=== PATIENT | female | born 1945 | race Caucasian/White ===

== ENCOUNTER → 2016-12-12 | Outpatient (CLI) | payer MEDICARE, OTHER ==
[~2016-12-12] MED LIST: ACETAMINOPHEN TAB 325 MG TAB PO ONE; SODIUM CHLORIDE 0.9% 250 ML in EMPTY BAG 1 BAG IV PRN; SODIUM CHLORIDE 0.9% 500 ML in EMPTY BAG 1 BAG IV PRN; diphenhydrAMINE 25 MG CAP PO ONE; diphenhydrAMINE 50 MG/ML 1 ML VIAL IVP ONE
[2016-12-12 11:35] VITALS: RESP 18; TEMP 97.9
[2016-12-12 13:09] VITALS: PULSE 72
[2016-12-12 13:33] VITALS: BP 122/57
== END | disposition home or self-care (01) ==
LOC: PROCWHC3 11:10
PROVIDERS: ATTEND Internal Medicine Rheumatology
DX: L40.59 Other psoriatic arthropathy (principal)
CPT/HCPCS: 96361; 96413; 96415; 36415; J1745

== ENCOUNTER → 2017-02-03 | Outpatient (CLI) | payer MEDICARE, OTHER ==
[2017-02-03 11:09] VITALS: TEMP 97.5
[2017-02-03 11:51] LABS: Basophils # (A) 0.1 k/uL (0-0.2); Basophils % (A) 1 %; CH 32.6; CHCM 32.4; Eosinophils # (A) 0.4 k/uL (0-0.7); Eosinophils % (A) 6 %; HCT 44.4 % (34.0-46.0); HGB 14.4 gm/dL (11.4-16.0); Luc # (Auto) 0.11; Luc % (Auto) 2; Lymphocytes # (A) 1.6 k/uL (1.0-4.8); Lymphocytes % (A) 23 %; MCH 32.8 pg (25.0-35.0); MCHC 32.4 g/dL (31.0-37.0); MCV 101.2 fL (80.0-100.0); Macrocytosis Slight; Mean Platelet Volume 7.6; Monocytes # (A) 0.4 k/uL (0-1.0); Monocytes % (A) 5 %; Neutrophils # (A) 4.3 k/uL (1.3-7.7); Neutrophils % (A) 63 %; RBC 4.38 m/uL (3.80-5.40); RDW 13.8 % (11.5-15.5); WBC 6.8 k/uL (3.8-10.6)
[2017-02-03 12:10] LABS: Bilirubin, Delta 0.4 mg/dL (0.0-0.2); Calcium 9.5 mg/dL (8.4-10.2); Potassium 5.3 mmol/L (3.5-5.1); Total Bilirubin 0.8 mg/dL (0.2-1.3); Total Protein 7.1 g/dL (6.3-8.2)
[2017-02-03 12:53] VITALS: BP 131/60; PULSE 67; RESP 18
[2017-02-03 14:53] LABS: Erythrocyte Sedimentation Rate 16 mm/hr (0-20)
[2017-02-03 15:10] LABS: Appearance,Urine Cloudy (Clear); Bacteria,Urine Rare /hpf; Bilirubin,Urine Negative (Negative); Glucose,Urine (UA) Negative (Negative); Ketones,Urine Negative (Negative); Leukocyte Esterase,Urine Small (Negative); Nitrite,Urine Negative (Negative); Particle Count 10057; Protein,Urine Trace (Negative); RBC,Urine 3 /hpf (0-5); Specific Gravity,Urine 1.014 (1.001-1.035); Squamous Epithelial Cell,Urine 4 /hpf (0-4); UA Billing (MACRO vs. MICRO) MICRO; Urobilinogen,Urine <2.0 mg/dL (<2.0); WBC,Urine 2 /hpf (0-5)
== END | disposition home or self-care (01) ==
LOC: PROCWHC3 10:31
PROVIDERS: ATTEND Internal Medicine Rheumatology
DX: L40.50 Arthropathic psoriasis, unspecified (principal)
CPT/HCPCS: 80053; 85652; 82248; 85025; 81001; 96413; 96415; J1745

== ENCOUNTER 2017-04-07 18:12 | Emergency (ER) | payer MEDICARE, OTHER ==
[2017-04-07 18:20] LABS: Glucose,Whole Blood 60 mg/dL (75-99)
--- NOTE | 2017-04-07 18:35 | ED ---
General Adult HPI - General Chief complaint: Recheck/Abnormal Lab/Rx Stated complaint: diabetes Time Seen by Provider: 04/07/17 18:27 Source: patient, RN notes reviewed Mode of arrival: ambulatory Limitations: no limitations - History of Present Illness Initial comments: 71-year-old female who presents emergency room today with a chief complaint of feeling shaky like her blood sugar is low. She does admit that she was bringing a friend here to the ER for a test. She states that she did take her insulin approximately 2 hours ago but did not have dinner. She states she began feeling very shaky and sweaty. He was given orange juice and crackers by nursing staff during triage at this time states she is beginning to feel little bit better. She denies any other complaints or symptoms. Patient denies any recent fever, chills, shortness of breath, chest pain, back pain, abdominal pain , nausea or vomiting, numbness or tingling, dysuria or hematuria, constipation or diarrhea, headaches or visual changes, or any other complaints. - Related Data Home Medications Medication Instructions Recorded Confirmed Clopidogrel [Plavix] 75 mg PO DAILY 02/24/14 02/03/17 DULoxetine HCL [Cymbalta] 60 mg PO HS 02/24/14 02/03/17 Fish Oil/Dha/Epa [Fish Oil 1,200 1,000 mg PO DAILY 02/24/14 02/03/17 mg Fish Oil] Folic Acid 1 mg PO DAILY 02/24/14 02/03/17 Gabapentin [Neurontin] 300 mg PO BID 02/24/14 02/03/17 INSULIN LISPRO (humaLOG) [humaLOG 20 unit SQ AC-BRKFST PRN 02/24/14 02/03/17 (formulary)] INSULIN LISPRO (humaLOG) [humaLOG 25 unit SQ AC-LUNCH PRN 02/24/14 02/03/17 (formulary)] INSULIN LISPRO (humaLOG) [humaLOG 25 unit SQ AC-SUPPER PRN 02/24/14 02/03/17 (formulary)] Insulin Detemir [Levemir Flexpen] 70 units SQ QAM 02/24/14 02/03/17 Levothyroxine Sodium [Synthroid] 75 mcg PO QAM 02/24/14 02/03/17 Nitroglycerin Sl Tabs [Nitrostat] 0.4 mg SUBLINGUAL DIRECTED PRN 02/24/14 Ascorbic Acid [Vitamin C] 500 mg PO DAILY 08/16/14 02/03/17 Cyanocobalamin (Vitamin B-12) 1,000 mcg PO DAILY 11/11/14 02/03/17 [B-12] Fluticasone Propionate [Flonase] 1 spr EA NOSTRIL DAILY PRN 11/11/14 02/03/17 Magnesium Oxide [Mag-Ox] 400 mg PO DAILY 11/11/14 02/03/17 inFLIXimab [Remicade] 400 mg IM DIRECTED 11/11/14 02/03/17 Cholecalciferol [Vitamin D3] 1,000 unit PO DAILY 12/10/14 02/03/17 Alendronate Sodium 70 mg PO WEEKLY 01/05/16 02/03/17 Triamcinolone 0.1% Cream [Kenalog] 1 applic TOPICAL DAILY PRN 01/05/16 02/03/17 Previous Rx's Medication Instructions Recorded Aspirin 325 mg PO DAILY #30 tab 08/18/14 Atorvastatin [Lipitor] 80 mg PO HS #30 tab 08/18/14 Metoprolol Tartrate [Lopressor] 25 mg PO BID #60 tab 08/18/14 Allergies Allergy/AdvReac Type Severity Reaction Status Date / Time adhesive Allergy Itching Verified 04/07/17 18:26 Penicillins Allergy Swelling,hi Verified 04/07/17 18:26 ves Review of Systems ROS Statement: Those systems with pertinent positive or pertinent negative responses have been documented in the HPI. ROS Other: All systems not noted in ROS Statement are negative. Past Medical History Past Medical History: Diabetes Mellitus, Deep Vein Thrombosis (DVT), Fibromyalgia, Hyperlipidemia, Hypertension, Myocardial Infarction ([place]), Thyroid Disorder, Vascular Disorder Additional Past Medical History / Comment(s): PAD, PSORIATIC ARTHRITIS. Last Myocardial Infarction Date:: 08/16/2014 History of Any Multi-Drug Resistant Organisms: None Reported Past Surgical History: Section, Heart Catheterization, Heart Catheterization With Stent Additional Past Surgical History / Comment(s): LEFT SUPERFICIAL FEMORAL ARTERY STENT.COLONOSCOPY, BILATERAL BREAST BIOPSY.NEPHROLITHOTOMY, LITHOTRIPSY, 08/05 cardiac stent, Arthrectomy Past Anesthesia/Blood Transfusion Reactions: No Reported Reaction Date of Last Stent Placement:: 2013 Past Psychological History: Depression Smoking Status: Current every day smoker Past Alcohol Use History: None Reported Past Drug Use History: None Reported - Past Family History Mother Family Medical History: Myocardial Infarction ([place]) Additional Family Medical History / Comment(s): MOTHER OF A HEART ATTACK AT AGE OF 63 Sister(s) Family Medical History: Cancer Additional Family Medical History / Comment(s): SISTER HAD OVARIAN CANCER Brother(s) Family Medical History: Cancer Additional Family Medical History / Comment(s): BONE CANCER,prostate,brain,cabg General Exam - General Exam Comments Initial Comments: General: The patient is awake and alert, in no distress, and does not appear acutely ill. Eye: Pupils are equal, round and reactive to light, extra-ocular movements are intact. No nystagmus. There is normal conjunctiva bilaterally. No signs of icterus. Ears, nose, mouth and throat: There are moist mucous membranes and no oral lesions. Neck: The neck is supple, there is no tenderness or JVD. Cardiovascular: There is a regular rate and rhythm. No murmur, rub or gallop is appreciated. Respiratory: Lungs are clear to auscultation, respirations are non-labored, breath sounds are equal. No wheezes, stridor, rales, or rhonchi. Gastrointestinal: Soft, non-distended, non-tender abdomen without masses or organomegaly noted. There is no rebound or guarding present. No CVA tenderness. Bowel sounds are unremarkable. Musculoskeletal: Normal ROM, no tenderness. Strength 5/5. Sensation intact. Pulses equal bilaterally 2+. Neurological: A&O x 3. CN II-XII intact, There are no obvious motor or sensory deficits. Coordination appears grossly intact. Speech is normal. Skin: Skin is warm and dry and no rashes or lesions are noted. Psychiatric: Cooperative, appropriate mood & affect, normal judgment. Limitations: no limitations Course Vital Signs 04/07/17 04/07/17 18:21 18:26 Temperature 96.9 F L 98.7 F Pulse Rate 105 H 84 Respiratory 18 16 Rate Blood Pressure 173/74 125/60 O2 Sat by Pulse 98 94 L Oximetry EKG Findings - EKG Comments: EKG Findings:: EKG performed at 1838: A 12-lead EKG was performed and interpreted by me as showing the following: Rate is 95, and rhythm is normal sinus. There are normal QRS complexes and normal R-wave progression. ST segments have no elevation or depression, and DC segments appear normal. Medical Decision Making - Medical Decision Making Patient reexamined at this time shows no signs of distress. Patient's repeat blood sugar 112. Feeling much better after given sitting which and when she was here in the emergency room. Patient states she feels comfortable at this time and would like to be discharged home. - Lab Data Lab Results 04/07/17 04/07/17 Range/Units 18:18 18:36 POC Glucose (mg/dL) 60 L 84 (75-99) mg/dL POC Glu [employer] Teacher ID Trina Diamond Nelly Camara Disposition Clinical Impression: Hypoglycemia Disposition: HOME SELF-CARE Condition: Good Instructions: Hypoglycemia in a Person with Diabetes (ED) Additional Instructions: Please follow-up with family doctor in the next 2 days of symptoms have not improved. Please return to emergency room if the symptoms increase or worsen or for any other concerns. Referrals: Jaswinder Prado MD [Primary Care Provider] - 1-2 days Time of Disposition: 19:22
[2017-04-07 18:38] LABS: Glucose,Whole Blood 84 mg/dL (75-99)
[2017-04-07 18:56] VITALS: TEMP 98.7
[2017-04-07 19:22] LABS: Glucose,Whole Blood 112 mg/dL (75-99)
[2017-04-07 19:28] VITALS: BP 125/57; PULSE 91; RESP 18
== END 2017-04-07 19:49 | disposition home or self-care (01) ==
LOC: EC 18:12
DX: E11.649 Type 2 diabetes mellitus with hypoglycemia without coma (principal); L40.50 Arthropathic psoriasis, unspecified; M79.7 Fibromyalgia; E07.9 Disorder of thyroid, unspecified; F32.9 Major depressive disorder, single episode, unspecified; I25.2 Old myocardial infarction; F17.200 Nicotine dependence, unspecified, uncomplicated; Z79.4 Long term (current) use of insulin; Z79.02 Long term (current) use of antithrombotics/antiplatelets; Z79.899 Other long term (current) drug therapy; Z88.0 Allergy status to penicillin; Z91.09 Other allergy status, other than to drugs and biological substances
CPT/HCPCS: 36415; 93005; 99283

== ENCOUNTER → 2017-04-24 | Outpatient (CLI) | payer MEDICARE, OTHER ==
[2017-04-24 11:33] VITALS: RESP 16; TEMP 97.8
[2017-04-24 13:19] VITALS: BP 122/58; PULSE 73
== END | disposition home or self-care (01) ==
LOC: PROCWHC3 11:24
PROVIDERS: ATTEND Internal Medicine Rheumatology
DX: L40.59 Other psoriatic arthropathy (principal)
CPT/HCPCS: 96413; 96415; J1745

== ENCOUNTER → 2017-07-13 | Outpatient (CLI) | payer MEDICARE, OTHER ==
[~2017-07-13] MED LIST changes: +ACETAMINOPHEN TAB 325 MG TAB PO NR; +INFLIXIMAB-DYYB 600 MG in SODIUM CHLORIDE 0.9% 250 ML IV NR; +diphenhydrAMINE 25 MG CAP PO NR; +diphenhydrAMINE 50 MG/ML 1 ML VIAL IVP NR
[2017-07-13 12:59] VITALS: TEMP 98.2
[2017-07-13 13:29] LABS: Basophils # (A) 0.1 k/uL (0-0.2); Basophils % (A) 1 %; CH 33.4; CHCM 33.5; Eosinophils # (A) 0.4 k/uL (0-0.7); Eosinophils % (A) 5 %; HDW 2.47; HGB 13.6 gm/dL (11.4-16.0); Luc # (Auto) 0.12; Luc % (Auto) 1; Lymphocytes # (A) 1.5 k/uL (1.0-4.8); Lymphocytes % (A) 19 %; MCH 33.2 pg (25.0-35.0); MCHC 33.1 g/dL (31.0-37.0); MCV 100.3 fL (80.0-100.0); Mean Platelet Volume 8.3; Monocytes # (A) 0.4 k/uL (0-1.0); Monocytes % (A) 5 %; Neutrophils # (A) 5.5 k/uL (1.3-7.7); Neutrophils % (A) 69 %; RBC 4.09 m/uL (3.80-5.40); RDW 13.8 % (11.5-15.5)
[2017-07-13 13:52] VITALS: RESP 16
[2017-07-13 14:35] VITALS: BP 131/60; PULSE 60
[2017-07-13 15:36] LABS: Appearance,Urine Clear (Clear); Bacteria,Urine Rare /hpf; Bilirubin,Urine Negative (Negative); Glucose,Urine (UA) 2+ (Negative); Ketones,Urine Negative (Negative); Leukocyte Esterase,Urine Trace (Negative); Nitrite,Urine Negative (Negative); PH, Urine 5.5 (5.0-8.0); Particle Count 2466; Protein,Urine 1+ (Negative); RBC,Urine 2 /hpf (0-5); Specific Gravity,Urine 1.014 (1.001-1.035); Squamous Epithelial Cell,Urine 2 /hpf (0-4); UA Billing (MACRO vs. MICRO) MICRO; Urobilinogen,Urine <2.0 mg/dL (<2.0); WBC,Urine 3 /hpf (0-5)
[2017-07-13 15:53] LABS: Erythrocyte Sedimentation Rate 17 mm/hr (0-20)
[2017-07-13 19:24] LABS: Bilirubin, Delta 0.1 mg/dL (0.0-0.2); Calcium 8.7 mg/dL (8.4-10.2); Potassium 4.9 mmol/L (3.5-5.1); Total Bilirubin 0.4 mg/dL (0.2-1.3); Total Protein 6.4 g/dL (6.3-8.2)
== END | disposition home or self-care (01) ==
LOC: PROCWHC3 12:24
PROVIDERS: ATTEND Internal Medicine Rheumatology
DX: Z51.11 Encounter for antineoplastic chemotherapy (principal); L40.59 Other psoriatic arthropathy
CPT/HCPCS: 80053; 85652; 82248; 85025; 81001; 96413; 96415; 36415; Q5102

== ENCOUNTER → 2017-11-27 | Outpatient (CLI) | payer MEDICARE, OTHER ==
[~2017-11-27] MED LIST changes: -ACETAMINOPHEN TAB 325 MG TAB PO NR; -INFLIXIMAB-DYYB 600 MG in SODIUM CHLORIDE 0.9% 250 ML IV NR; +INFLIXIMAB-DYYB 600 MG in SODIUM CHLORIDE 0.9% 250 ML IV ONE; -SODIUM CHLORIDE 0.9% 250 ML in EMPTY BAG 1 BAG IV PRN; -diphenhydrAMINE 25 MG CAP PO NR; -diphenhydrAMINE 50 MG/ML 1 ML VIAL IVP NR
[2017-11-27 12:27] VITALS: TEMP 98.2
[2017-11-27 13:02] VITALS: RESP 18
[2017-11-27 13:59] VITALS: BP 125/60; PULSE 77
== END | disposition home or self-care (01) ==
LOC: PROCWHC3 12:07
PROVIDERS: ATTEND Internal Medicine Rheumatology
DX: L40.59 Other psoriatic arthropathy (principal)
CPT/HCPCS: 96361; 96413; 96415; Q5102

== ENCOUNTER → 2018-01-08 | Outpatient (CLI) | payer MEDICARE, OTHER ==
[~2018-01-08] MED LIST changes: +ACETAMINOPHEN TAB 325 MG TAB PO NR; -ACETAMINOPHEN TAB 325 MG TAB PO ONE; -INFLIXIMAB-DYYB 600 MG in SODIUM CHLORIDE 0.9% 250 ML IV ONE; +diphenhydrAMINE 25 MG CAP PO NR; -diphenhydrAMINE 25 MG CAP PO ONE; +diphenhydrAMINE 50 MG/ML 1 ML VIAL IVP NR; -diphenhydrAMINE 50 MG/ML 1 ML VIAL IVP ONE
[2018-01-08 12:24] VITALS: TEMP 98.5
[2018-01-08 13:00] LABS: Basophils # (A) 0.1 k/uL (0-0.2); Basophils % (A) 1 %; Eosinophils # (A) 0.4 k/uL (0-0.7); Eosinophils % (A) 5 %; HCT 44.5 % (34.0-46.0); Lymphocytes # (A) 1.8 k/uL (1.0-4.8); Lymphocytes % (A) 23 %; MCH 32.8 pg (25.0-35.0); MCHC 33.8 g/dL (31.0-37.0); MCV 97.1 fL (80.0-100.0); Mean Platelet Volume 7.9; Monocytes # (A) 0.3 k/uL (0-1.0); Monocytes % (A) 4 %; Neutrophils # (A) 5.2 k/uL (1.3-7.7); Neutrophils % (A) 66 %; Platelet Count 206 k/uL (150-450); RBC 4.58 m/uL (3.80-5.40); RDW 12.8 % (11.5-15.5); WBC 7.9 k/uL (3.8-10.6)
[2018-01-08 13:19] LABS: Albumin 3.7 g/dL (3.5-5.0); Bilirubin, Delta 0.3 mg/dL (0.0-0.2); Bilirubin,Unconjugated 0.3 mg/dL (0.0-1.1); Calcium 9.3 mg/dL (8.4-10.2); Potassium 5.1 mmol/L (3.5-5.1); Total Bilirubin 0.6 mg/dL (0.2-1.3); Total Protein 6.6 g/dL (6.3-8.2)
[2018-01-08 13:29] VITALS: RESP 18
[2018-01-08 14:02] VITALS: BP 143/64; PULSE 70
[2018-01-08 14:28] LABS: Erythrocyte Sedimentation Rate 10 mm/hr (0-20)
[2018-01-08 15:44] LABS: Appearance,Urine Cloudy (Clear); Bacteria,Urine Rare /hpf; Bilirubin,Urine Negative (Negative); Blood,Urine Negative (Negative); Color,Urine Yellow; Glucose,Urine (UA) 4+ (Negative); Hyaline Casts,Urine 5 /lpf (0-2); Ketones,Urine Negative (Negative); Leukocyte Esterase,Urine Trace (Negative); Mucus,Urine Rare /hpf; Nitrite,Urine Negative (Negative); PH, Urine 5.5 (5.0-8.0); Protein,Urine 2+ (Negative); RBC,Urine 2 /hpf (0-5); Squamous Epithelial Cell,Urine 5 /hpf (0-4); Urobilinogen,Urine <2.0 mg/dL (<2.0); WBC,Urine 3 /hpf (0-5)
== END | disposition home or self-care (01) ==
LOC: PROCWHC3 11:51
PROVIDERS: ATTEND Internal Medicine Rheumatology
DX: L40.59 Other psoriatic arthropathy (principal)
CPT/HCPCS: 80053; 85652; 82248; 85025; 81001; J1745

== ENCOUNTER → 2018-02-19 | Outpatient (CLI) | payer MEDICARE, OTHER ==
[~2018-02-19] MED LIST changes: -ACETAMINOPHEN TAB 325 MG TAB PO NR; +ACETAMINOPHEN TAB 325 MG TAB PO ONE; +INFLIXIMAB-DYYB 600 MG in SODIUM CHLORIDE 0.9% 250 ML IV ONE; -diphenhydrAMINE 25 MG CAP PO NR; +diphenhydrAMINE 25 MG CAP PO ONE; -diphenhydrAMINE 50 MG/ML 1 ML VIAL IVP NR; +diphenhydrAMINE 50 MG/ML 1 ML VIAL IVP ONE
[2018-02-19 12:51] VITALS: TEMP 98
[2018-02-19 14:29] VITALS: BP 156/66; PULSE 76; RESP 16
== END | disposition home or self-care (01) ==
LOC: PROCWHC3 11:52
PROVIDERS: ATTEND Internal Medicine Rheumatology
DX: L40.59 Other psoriatic arthropathy (principal); Z79.899 Other long term (current) drug therapy
CPT/HCPCS: 96413; 96415; Q5103

== ENCOUNTER → 2018-04-10 | Outpatient (CLI) | payer MEDICARE, OTHER ==
[~2018-04-10] MED LIST changes: -ACETAMINOPHEN TAB 325 MG TAB PO ONE; +ACETAMINOPHEN TAB 325 MG TAB PO PRN; +INFLIXIMAB-DYYB 600 MG in SODIUM CHLORIDE 0.9% 250 ML IV NR; -diphenhydrAMINE 25 MG CAP PO ONE; +diphenhydrAMINE 25 MG CAP PO PRN; -diphenhydrAMINE 50 MG/ML 1 ML VIAL IVP ONE
[2018-04-10 11:58] VITALS: TEMP 97.7
[2018-04-10 12:13] LABS: Basophils # (A) 0.1 k/uL (0-0.2); Basophils % (A) 1 %; Eosinophils # (A) 0.5 k/uL (0-0.7); Eosinophils % (A) 7 %; HCT 42.7 % (34.0-46.0); HGB 14.2 gm/dL (11.4-16.0); Lymphocytes # (A) 2.5 k/uL (1.0-4.8); Lymphocytes % (A) 33 %; MCH 31.9 pg (25.0-35.0); MCHC 33.3 g/dL (31.0-37.0); MCV 95.8 fL (80.0-100.0); Mean Platelet Volume 7.5; Monocytes # (A) 0.4 k/uL (0-1.0); Monocytes % (A) 6 %; Neutrophils # (A) 3.9 k/uL (1.3-7.7); Neutrophils % (A) 52 %; Platelet Count 196 k/uL (150-450); RBC 4.45 m/uL (3.80-5.40); RDW 12.9 % (11.5-15.5); WBC 7.4 k/uL (3.8-10.6)
[2018-04-10 12:22] LABS: Albumin 3.9 g/dL (3.5-5.0); Bilirubin, Delta 0.2 mg/dL (0.0-0.2); Bilirubin,Unconjugated 0.4 mg/dL (0.0-1.1); Total Bilirubin 0.6 mg/dL (0.2-1.3); Total Protein 6.4 g/dL (6.3-8.2)
[2018-04-10 13:31] VITALS: BP 138/62; PULSE 64; RESP 20
[2018-04-10 15:16] LABS: Appearance,Urine Clear (Clear); Bacteria,Urine Rare /hpf; Bilirubin,Urine Negative (Negative); Blood,Urine Negative (Negative); Color,Urine Light Yellow; Glucose,Urine (UA) Negative (Negative); Ketones,Urine Negative (Negative); Leukocyte Esterase,Urine Trace (Negative); Mucus,Urine Rare /hpf; Nitrite,Urine Negative (Negative); Protein,Urine Trace (Negative); Specific Gravity,Urine 1.007 (1.001-1.035); Squamous Epithelial Cell,Urine 2 /hpf (0-4); Urobilinogen,Urine <2.0 mg/dL (<2.0); WBC,Urine 1 /hpf (0-5)
[2018-04-10 17:09] LABS: Erythrocyte Sedimentation Rate 13 mm/hr (0-20)
== END | disposition home or self-care (01) ==
LOC: PROCWHC3 10:37
PROVIDERS: ATTEND Internal Medicine Rheumatology
DX: L40.59 Other psoriatic arthropathy (principal)
CPT/HCPCS: 80053; 85652; 82248; 85025; 81001; 96360; 96413; 96415; 36415; Q5103

== ENCOUNTER → 2018-09-27 | Outpatient (CLI) | payer MEDICARE, OTHER ==
[~2018-09-27] MED LIST changes: +ACETAMINOPHEN TAB 325 MG TAB PO NR; -ACETAMINOPHEN TAB 325 MG TAB PO PRN; -INFLIXIMAB-DYYB 600 MG in SODIUM CHLORIDE 0.9% 250 ML IV ONE; +SODIUM CHLORIDE 0.9% 500 ML 500 ML in EMPTY BAG 1 BAG IV NR; -SODIUM CHLORIDE 0.9% 500 ML in EMPTY BAG 1 BAG IV PRN; +diphenhydrAMINE 25 MG CAP PO NR; -diphenhydrAMINE 25 MG CAP PO PRN; +diphenhydrAMINE 50 MG/ML 1 ML VIAL IVP NR
[2018-09-27 10:56] VITALS: TEMP 97.6
[2018-09-27 11:37] LABS: Basophils # (A) 0.1 k/uL (0-0.2); Basophils % (A) 1 %; Eosinophils # (A) 0.5 k/uL (0-0.7); Eosinophils % (A) 6 %; HCT 40.2 % (34.0-46.0); HGB 13.3 gm/dL (11.4-16.0); Lymphocytes # (A) 1.7 k/uL (1.0-4.8); Lymphocytes % (A) 22 %; MCH 32.7 pg (25.0-35.0); MCHC 33.2 g/dL (31.0-37.0); MCV 98.6 fL (80.0-100.0); Monocytes # (A) 0.5 k/uL (0-1.0); Monocytes % (A) 6 %; Neutrophils # (A) 4.8 k/uL (1.3-7.7); Neutrophils % (A) 63 %; Platelet Count 192 k/uL (150-450); RBC 4.07 m/uL (3.80-5.40); RDW 12.9 % (11.5-15.5); WBC 7.6 k/uL (3.8-10.6)
[2018-09-27 11:44] LABS: Albumin 3.8 g/dL (3.5-5.0); Bilirubin, Delta 0.2 mg/dL (0.0-0.2); Bilirubin,Unconjugated 0.3 mg/dL (0.0-1.1); Calcium 9.2 mg/dL (8.4-10.2); Potassium 5.2 mmol/L (3.5-5.1); Total Bilirubin 0.5 mg/dL (0.2-1.3); Total Protein 6.8 g/dL (6.3-8.2)
[2018-09-27 12:17] VITALS: BP 123/58; PULSE 73; RESP 18
[2018-09-27 12:56] LABS: Erythrocyte Sedimentation Rate 23 mm/hr (0-20)
[2018-09-27 13:49] LABS: Appearance,Urine Clear (Clear); Bacteria,Urine Rare /hpf; Bilirubin,Urine Negative (Negative); Blood,Urine Negative (Negative); Color,Urine Light Yellow; Glucose,Urine (UA) Negative (Negative); Ketones,Urine Negative (Negative); Leukocyte Esterase,Urine Trace (Negative); Mucus,Urine Rare /hpf; Nitrite,Urine Negative (Negative); Protein,Urine Negative (Negative); Specific Gravity,Urine 1.007 (1.001-1.035); Squamous Epithelial Cell,Urine 3 /hpf (0-4); Urobilinogen,Urine <2.0 mg/dL (<2.0); WBC,Urine 1 /hpf (0-5)
== END ==
LOC: PROCWHC3 10:33
PROVIDERS: ATTEND Internal Medicine Rheumatology
DX: L40.59 Other psoriatic arthropathy (principal)
CPT/HCPCS: 80053; 85652; 82248; 85025; 81001; 96413; 96415; 36415; Q5103

== ENCOUNTER → 2018-11-08 | Outpatient (CLI) | payer MEDICARE, OTHER ==
[~2018-11-08] MED LIST changes: -SODIUM CHLORIDE 0.9% 500 ML 500 ML in EMPTY BAG 1 BAG IV NR; +SODIUM CHLORIDE 0.9% 500 ML 500 ML in EMPTY BAG 1 BAG IV PRN; -diphenhydrAMINE 50 MG/ML 1 ML VIAL IVP NR
[2018-11-08 10:36] VITALS: RESP 18; TEMP 98
[2018-11-08 11:07] LABS: Basophils # (A) 0.1 k/uL (0-0.2); Basophils % (A) 1 %; Eosinophils # (A) 0.3 k/uL (0-0.7); Eosinophils % (A) 5 %; HCT 42.7 % (34.0-46.0); HGB 13.1 gm/dL (11.4-16.0); Lymphocytes # (A) 1.2 k/uL (1.0-4.8); Lymphocytes % (A) 19 %; MCH 30.7 pg (25.0-35.0); MCHC 30.6 g/dL (31.0-37.0); MCV 100.5 fL (80.0-100.0); Mean Platelet Volume 7.6; Monocytes # (A) 0.4 k/uL (0-1.0); Monocytes % (A) 6 %; Neutrophils # (A) 4.3 k/uL (1.3-7.7); Neutrophils % (A) 67 %; Platelet Count 155 k/uL (150-450); RBC 4.25 m/uL (3.80-5.40); RDW 13.4 % (11.5-15.5); WBC 6.4 k/uL (3.8-10.6)
[2018-11-08 11:21] LABS: Albumin 3.9 g/dL (3.5-5.0); Bilirubin, Delta 0.3 mg/dL (0.0-0.2); Bilirubin,Unconjugated 0.7 mg/dL (0.0-1.1); Calcium 9.5 mg/dL (8.4-10.2); Total Protein 6.9 g/dL (6.3-8.2)
[2018-11-08 11:54] VITALS: BP 107/62; PULSE 82
[2018-11-08 13:23] LABS: Erythrocyte Sedimentation Rate 25 mm/hr (0-20)
[2018-11-08 13:26] LABS: Appearance,Urine Cloudy (Clear); Bacteria,Urine Rare /hpf; Bilirubin,Urine Negative (Negative); Blood,Urine Negative (Negative); Color,Urine Yellow; Glucose,Urine (UA) 1+ (Negative); Ketones,Urine Negative (Negative); Leukocyte Esterase,Urine Trace (Negative); Mucus,Urine Rare /hpf; Nitrite,Urine Negative (Negative); Protein,Urine 1+ (Negative); Specific Gravity,Urine 1.014 (1.001-1.035); Squamous Epithelial Cell,Urine 5 /hpf (0-4); WBC,Urine 3 /hpf (0-5)
[2018-11-08 20:06] LABS: Hemoglobin A1C 8.6 % (4.0-6.0)
== END | disposition home or self-care (01) ==
LOC: PROCWHC3 10:21
PROVIDERS: ATTEND Internal Medicine Rheumatology
DX: L40.59 Other psoriatic arthropathy (principal); E78.5 Hyperlipidemia, unspecified; E11.9 Type 2 diabetes mellitus without complications; I10 Essential (primary) hypertension; M85.80 Other specified disorders of bone density and structure, unspecified site
CPT/HCPCS: 80061; 80053; 85652; 82248; 84443; 85025; 81001; 82306; 82043; 82570; 83036; 96413; 96415; 36415; Q5103

== ENCOUNTER 2019-01-25 11:20 | Inpatient (IN) | payer MEDICARE, OTHER ==
[2019-01-25] MEDS ORDERED: SODIUM CHLORIDE 0.9% 500 ML 500 ML IV STA (11:49)
[2019-01-25] MEDS ORDERED: SODIUM CHLORIDE 0.9% 1,000 ML IV STA (11:49)
--- NOTE | 2019-01-25 11:59 | ED ---
General Adult HPI - General Chief complaint: Weakness Stated complaint: Weakness, fall Time Seen by Provider: 01/25/19 11:41 Source: patient, EMS, RN notes reviewed, old records reviewed Mode of arrival: EMS Limitations: no limitations - History of Present Illness Initial comments: 73-year-old female presenting with chief complaint of generalized weakness. Denies focal numbness or weakness. Patient has many additional complaints, she complains of mild headache, generalized arthritis pain, nausea with no vomiting. She denies chest pain. Denies fever or chills. She states she's had a poor appetite and has not been eating much. She also reports multiple falls. Denies any specific extremity injury or head injury. - Related Data Home Medications Medication Instructions Recorded Confirmed Clopidogrel [Plavix] 75 mg PO DAILY 02/24/14 11/08/18 DULoxetine HCL [Cymbalta] 60 mg PO HS 02/24/14 11/08/18 Fish Oil/Dha/Epa [Fish Oil 1,200 1,000 mg PO DAILY 02/24/14 11/08/18 mg Fish Oil] Folic Acid 1 mg PO DAILY 02/24/14 01/25/19 Gabapentin [Neurontin] 300 mg PO BID 02/24/14 11/08/18 INSULIN LISPRO (humaLOG) [humaLOG] 20 unit SQ AC-BRKFST PRN 02/24/14 11/08/18 INSULIN LISPRO (humaLOG) [humaLOG] 25 unit SQ AC-LUNCH PRN 02/24/14 11/08/18 INSULIN LISPRO (humaLOG) [humaLOG] 25 unit SQ AC-SUPPER PRN 02/24/14 11/08/18 Insulin Detemir [Levemir Flexpen] 70 units SQ QAM 02/24/14 11/08/18 Levothyroxine Sodium [Synthroid] 75 mcg PO QAM 02/24/14 11/08/18 Nitroglycerin Sl Tabs [Nitrostat] 0.4 mg SUBLINGUAL DIRECTED PRN 02/24/14 11/08/18 Ascorbic Acid [Vitamin C] 500 mg PO DAILY 08/16/14 11/08/18 Cyanocobalamin (Vitamin B-12) 1,000 mcg PO DAILY 11/11/14 11/08/18 [B-12] Fluticasone Propionate [Flonase] 1 spr EA NOSTRIL DAILY PRN 11/11/14 11/08/18 Magnesium Oxide [Mag-Ox] 400 mg PO DAILY 11/11/14 01/25/19 inFLIXimab [Remicade] 400 mg IM DIRECTED 11/11/14 11/08/18 Cholecalciferol [Vitamin D3] 2,000 unit PO DAILY 12/10/14 01/25/19 Triamcinolone 0.1% Cream [Kenalog 1 applic TOPICAL DAILY PRN 01/05/16 11/08/18 0.1% Cream] Aspirin 81 mg PO DAILY 08/24/17 01/25/19 Enalapril [Vasotec] 2.5 mg PO DAILY 01/25/19 01/25/19 Pioglitazone [Actos] 15 mg PO DAILY 01/25/19 01/25/19 Previous Rx's Medication Instructions Recorded Atorvastatin [Lipitor] 80 mg PO HS #30 tab 08/18/14 Metoprolol Tartrate [Lopressor] 25 mg PO BID #60 tab 08/18/14 Allergies Allergy/AdvReac Type Severity Reaction Status Date / Time adhesive Allergy Itching Verified 01/25/19 15:33 Penicillins Allergy Swelling,hi Verified 01/25/19 15:33 ves Review of Systems ROS Statement: Those systems with pertinent positive or pertinent negative responses have been documented in the HPI. ROS Other: All systems not noted in ROS Statement are negative. Past Medical History Past Medical History: Atrial Fibrillation, Diabetes Mellitus, Deep Vein Thrombosis (DVT), Fibromyalgia, Hyperlipidemia, Hypertension, Myocardial Infarction ([place]), Thyroid Disorder, Vascular Disorder Additional Past Medical History / Comment(s): PAD, PSORIATIC ARTHRITIS. LEFT KIDNEY STONE. Last Myocardial Infarction Date:: 08/16/2014 History of Any Multi-Drug Resistant Organisms: None Reported Past Surgical History: Section, Heart Catheterization, Heart Catheterization With Stent Additional Past Surgical History / Comment(s): LEFT SUPERFICIAL FEMORAL ARTERY STENT.COLONOSCOPY, BILATERAL BREAST BIOPSY.NEPHROLITHOTOMY, LITHOTRIPSY, 08/05 cardiac stent, Arthrectomy Past Anesthesia/Blood Transfusion Reactions: No Reported Reaction Date of Last Stent Placement:: 2013 Past Psychological History: Depression Smoking Status: Current some day smoker Past Alcohol Use History: None Reported Past Drug Use History: None Reported - Past Family History Mother Family Medical History: Myocardial Infarction ([place]) Additional Family Medical History / Comment(s): MOTHER OF A HEART ATTACK AT AGE OF 63 Sister(s) Family Medical History: Cancer Additional Family Medical History / Comment(s): SISTER HAD OVARIAN CANCER Brother(s) Family Medical History: Cancer Additional Family Medical History / Comment(s): BONE CANCER,prostate,brain,cabg General Exam Limitations: no limitations General appearance: alert Head exam: Present: atraumatic, normocephalic Eye exam: Present: PERRL ENT exam: Present: mucous membranes dry Neck exam: Present: normal inspection. Absent: tenderness, meningismus Respiratory exam: Present: normal lung sounds bilaterally. Absent: respiratory distress, wheezes Cardiovascular Exam: Present: regular rate, normal rhythm GI/Abdominal exam: Present: soft. Absent: distended, tenderness, guarding Extremities exam: Present: normal capillary refill. Absent: pedal edema Neurological exam: Present: alert, oriented X3, CN II-XII intact. Absent: motor sensory deficit Psychiatric exam: Present: normal affect, normal mood Skin exam: Present: warm, dry, intact. Absent: cyanosis, diaphoretic Course Vital Signs 01/25/19 01/25/19 01/25/19 11:31 13:03 15:07 Temperature 98.0 F Pulse Rate 96 102 H 105 H Respiratory 16 18 20 Rate Blood Pressure 124/53 114/71 126/98 O2 Sat by Pulse 98 97 97 Oximetry EKG Findings - EKG Comments: EKG Findings:: EKG: Atrial fibrillation, RVR, low voltage, rate of 107, QRS duration 76, QTC 397, no ST segment changes. Medical Decision Making - Medical Decision Making 73-year-old female presenting with generalized weakness. Found to have significantly elevated calcium at 13.5. Creatinine 1.77. Other electrolytes are within normal limits. Normal CBC. The EKG shows atrial fibrillation which patient has history of. Patient's given IV hydration emergency prompt or will be admitted for further evaluation and treatment. Nephrology placed on consult. Case discussed with Dr. Thurman, will add PTH and phosphorus level. These are pending. - Lab Data Result diagrams: 01/25/19 11:50 01/25/19 11:50 Lab Results 01/25/19 01/25/19 01/25/19 Range/Units 11:50 11:50 11:50 WBC 7.6 (3.8-10.6) k/uL RBC 4.74 (3.80-5.40) m/uL Hgb 15.2 (11.4-16.0) gm/dL Hct 43.7 (34.0-46.0) % MCV 92.2 (80.0-100.0) fL MCH 32.0 (25.0-35.0) pg MCHC 34.7 (31.0-37.0) g/dL RDW 13.7 (11.5-15.5) % Plt Count 256 (150-450) k/uL Neutrophils % 73 % Lymphocytes % 13 % Monocytes % 7 % Eosinophils % 4 % Basophils % 1 % Neutrophils # 5.6 (1.3-7.7) k/uL Lymphocytes # 1.0 (1.0-4.8) k/uL Monocytes # 0.6 (0-1.0) k/uL Eosinophils # 0.3 (0-0.7) k/uL Basophils # 0.1 (0-0.2) k/uL PT (9.0-12.0) sec INR (<1.2) APTT (22.0-30.0) sec Sodium 134 L (137-145) mmol/L Potassium 5.0 (3.5-5.1) mmol/L Chloride 98 (98-107) mmol/L Carbon Dioxide 26 (22-30) mmol/L Anion Gap 10 mmol/L BUN 35 H (7-17) mg/dL Creatinine 1.77 H (0.52-1.04) mg/dL Est GFR (CKD-EPI)AfAm 33 (>60 ml/min/1.73 sqM) Est GFR (CKD-EPI)NonAf 28 (>60 ml/min/1.73 sqM) Glucose 102 H (74-99) mg/dL Plasma Lactic Acid Rashaad 1.8 (0.7-2.0) mmol/L Calcium 13.5 H* (8.4-10.2) mg/dL Magnesium 2.0 (1.6-2.3) mg/dL Total Bilirubin 0.9 (0.2-1.3) mg/dL AST 33 (14-36) U/L ALT 33 (9-52) U/L Alkaline Phosphatase 64 (38-126) U/L Troponin I (0.000-0.034) ng/mL Total Protein 6.6 (6.3-8.2) g/dL Albumin 3.6 (3.5-5.0) g/dL Urine Color Urine Appearance (Clear) Urine pH (5.0-8.0) Ur Specific [place] (1.001-1.035) Urine Protein (Negative) Urine Glucose (UA) (Negative) Urine Ketones (Negative) Urine Blood (Negative) Urine Nitrite (Negative) Urine Bilirubin (Negative) Urine Urobilinogen (<2.0) mg/dL Ur Leukocyte Esterase (Negative) Urine RBC (0-5) /hpf Urine WBC (0-5) /hpf Ur Squamous Epith Cells (0-4) /hpf Urine Bacteria (None) /hpf Hyaline Casts (0-2) /lpf Urine Mucus (None) /hpf 01/25/19 01/25/19 01/25/19 Range/Units 11:50 11:50 13:54 WBC (3.8-10.6) k/uL RBC (3.80-5.40) m/uL Hgb (11.4-16.0) gm/dL Hct (34.0-46.0) % MCV (80.0-100.0) fL MCH (25.0-35.0) pg MCHC (31.0-37.0) g/dL RDW (11.5-15.5) % Plt Count (150-450) k/uL Neutrophils % % Lymphocytes % % Monocytes % % Eosinophils % % Basophils % % Neutrophils # (1.3-7.7) k/uL Lymphocytes # (1.0-4.8) k/uL Monocytes # (0-1.0) k/uL Eosinophils # (0-0.7) k/uL Basophils # (0-0.2) k/uL PT 10.0 (9.0-12.0) sec INR 0.9 (<1.2) APTT 22.8 (22.0-30.0) sec Sodium (137-145) mmol/L Potassium (3.5-5.1) mmol/L Chloride (98-107) mmol/L Carbon Dioxide (22-30) mmol/L Anion Gap mmol/L BUN (7-17) mg/dL Creatinine (0.52-1.04) mg/dL Est GFR (CKD-EPI)AfAm (>60 ml/min/1.73 sqM) Est GFR (CKD-EPI)NonAf (>60 ml/min/1.73 sqM) Glucose (74-99) mg/dL Plasma Lactic Acid Rashaad (0.7-2.0) mmol/L Calcium (8.4-10.2) mg/dL Magnesium (1.6-2.3) mg/dL Total Bilirubin (0.2-1.3) mg/dL AST (14-36) U/L ALT (9-52) U/L Alkaline Phosphatase (38-126) U/L Troponin I 0.012 (0.000-0.034) ng/mL Total Protein (6.3-8.2) g/dL Albumin (3.5-5.0) g/dL Urine Color Yellow Urine Appearance Cloudy H (Clear) Urine pH 5.0 (5.0-8.0) Ur Specific [place] 1.010 (1.001-1.035) Urine Protein Trace H (Negative) Urine Glucose (UA) Negative (Negative) Urine Ketones Negative (Negative) Urine Blood Negative (Negative) Urine Nitrite Negative (Negative) Urine Bilirubin Negative (Negative) Urine Urobilinogen <2.0 (<2.0) mg/dL Ur Leukocyte Esterase Small H (Negative) Urine RBC 2 (0-5) /hpf Urine WBC 4 (0-5) /hpf Ur Squamous Epith Cells 3 (0-4) /hpf Urine Bacteria Occasional H (None) /hpf Hyaline Casts 26 H (0-2) /lpf Urine Mucus Rare H (None) /hpf Disposition Clinical Impression: Hypercalcemia, Dehydration Disposition: ADMITTED IP TO THIS [facility] Condition: Stable Is patient prescribed a controlled substance at d/c from ED?: No Referrals: Jaswinder Prado MD [Primary Care Provider] - 1-2 days Decision to Admit Reason: Admit from EC Decision Date: 01/25/19 Decision Time: 15:52
[2019-01-25 12:12] LABS: Basophils # (A) 0.1 k/uL (0-0.2); Basophils % (A) 1 %; Eosinophils # (A) 0.3 k/uL (0-0.7); Eosinophils % (A) 4 %; HCT 43.7 % (34.0-46.0); HGB 15.2 gm/dL (11.4-16.0); Lymphocytes % (A) 13 %; MCHC 34.7 g/dL (31.0-37.0); MCV 92.2 fL (80.0-100.0); Mean Platelet Volume 8.1; Monocytes # (A) 0.6 k/uL (0-1.0); Monocytes % (A) 7 %; Neutrophils # (A) 5.6 k/uL (1.3-7.7); Neutrophils % (A) 73 %; Platelet Count 256 k/uL (150-450); RBC 4.74 m/uL (3.80-5.40); RDW 13.7 % (11.5-15.5); WBC 7.6 k/uL (3.8-10.6)
[2019-01-25 12:20] LABS: Albumin 3.6 g/dL (3.5-5.0); INR 0.9 (<1.2); Partial Thromboplastin Time 22.8 sec (22.0-30.0); Total Bilirubin 0.9 mg/dL (0.2-1.3); Total Protein 6.6 g/dL (6.3-8.2)
[2019-01-25 12:34] LABS: Calcium 13.5 mg/dL (8.4-10.2)
[2019-01-25] MEDS ORDERED: SODIUM CHLORIDE 0.9% 500 ML 500 ML IV ONE ×2 (12:43→14:57)
--- NOTE | 2019-01-25 12:50 | XR ---
EXAMINATION TYPE: XR pelvis AP view DATE OF EXAM: 01/25/2019 COMPARISON: None HISTORY: Pain, fall TECHNIQUE: AP pelvis is examined in the frontal projection. FINDINGS: No acute fractures are evident. Symphysis pubis and sacroiliac joints are normal. Vascular calcification is present. Stents are present within the superficial femoral arteries bilaterally. Nor mal bowel gas is present. IMPRESSION: 1. No acute osseous abnormality.
--- NOTE | 2019-01-25 12:51 | XR ---
EXAMINATION TYPE: XR chest 2V DATE OF EXAM: 01/25/2019 COMPARISON: 08/16/2014 INDICATION: Weakness, fall TECHNIQUE: Frontal and lateral views of the chest are obtained. FINDINGS: The heart size is normal. The pulmonary vasculature is normal. The lungs are clear. IMPRESSION: 1. No acute pulmonary process.
--- NOTE | 2019-01-25 13:05 | CT ---
EXAMINATION TYPE: CT brain giovanny castro DATE OF EXAM: 01/25/2019 COMPARISON: None HISTORY: Weakness, fall CT DLP: 1326.4 mGycm, Automated exposure control for dose reduction was used. CONTRAST: Patient injected with 0 mL of Isovue 300. CT of the brain is performed utilizing 3 mm thick sections through the posterior fossa and 3 mm thick sections through the remaining calvarium. Study is performed within 24 hours of arrival to the hospital. No abnormal hyperdensity is present to suggest an acute intracranial hemorrhage. No mass lesion is evident. No acute infarcts are evident. Mild white matter hypodensity is present, likely on the basis of chronic manager kalyn white matter ischemic changes. Ventricles and sulci are appropriate for the patient age. Paranasal sinuses and mastoid air cells within the [id number] are clear. IMPRESSIONS: 1. Mild chronic appearing white matter ischemic changes. CT cervical spine. COMPARISON: None CT of the cervical spine is performed in the axial plane at 2 mm thick sections. Reconstructed image s in the coronal, and sagittal plane are reviewed on the computer. No acute fractures are evident. Vertebral body alignment is normal. Disc heights are preserved. Vertebral body heights are preserved. No spinal canal stenosis is evident. Uncovertebral joint hypertrophy contributes to moderate left foraminal stenosis C3-4. Mild foraminal narrowing is present bilaterally C5-6. IMPRESSIONS: 1. No acute osseous abnormality cervical spine. 2. Some uncovertebral joint hypertrophy contributes to mild foraminal narrowing discussed above.
[2019-01-25 14:35] LABS: Appearance,Urine Cloudy (Clear); Bacteria,Urine Occasional /hpf; Bilirubin,Urine Negative (Negative); Blood,Urine Negative (Negative); Color,Urine Yellow; Glucose,Urine (UA) Negative (Negative); Hyaline Casts,Urine 26 /lpf (0-2); Ketones,Urine Negative (Negative); Leukocyte Esterase,Urine Small (Negative); Mucus,Urine Rare /hpf; Nitrite,Urine Negative (Negative); Protein,Urine Trace (Negative); RBC,Urine 2 /hpf (0-5); Squamous Epithelial Cell,Urine 3 /hpf (0-4); Urobilinogen,Urine <2.0 mg/dL (<2.0); WBC,Urine 4 /hpf (0-5)
[2019-01-25] MEDS ORDERED: NALOXONE 0.4 MG/ML 1 ML VIAL IV PRN (15:44)
[2019-01-25] MEDS ORDERED: SODIUM CHLORIDE 0.9% 1,000 ML IV SCH (15:45)
[2019-01-25 18:55] VITALS: BMI 30.9
[2019-01-25 20:27] LABS: Glucose,Whole Blood 142 mg/dL (75-99)
[2019-01-26] MEDS ORDERED: METOPROLOL TARTRATE 50 MG TAB PO STA (01:15)
[2019-01-26] MEDS ORDERED: ACETAMINOPHEN TAB 325 MG TAB PO PRN (01:18)
[2019-01-26] MEDS: SODIUM CHLORIDE 0.9% 1,000 ML IV SCH ×3 (01:28→21:48)
[2019-01-26] MEDS: LEVOFLOXACIN 250MG-D5W PMX 250 MG in DEXTROSE/WATER 1 50ML.BAG IVPB SCH (02:05)
[2019-01-26 07:12] LABS: Glucose,Whole Blood 146 mg/dL (75-99)
[2019-01-26 07:48] LABS: Basophils % (A) 1 %; Eosinophils # (A) 0.2 k/uL (0-0.7); Eosinophils % (A) 4 %; HCT 40.1 % (34.0-46.0); HGB 13.5 gm/dL (11.4-16.0); Lymphocytes # (A) 1.3 k/uL (1.0-4.8); Lymphocytes % (A) 20 %; MCH 31.1 pg (25.0-35.0); MCHC 33.7 g/dL (31.0-37.0); MCV 92.3 fL (80.0-100.0); Monocytes # (A) 0.6 k/uL (0-1.0); Monocytes % (A) 9 %; Neutrophils # (A) 4.2 k/uL (1.3-7.7); Neutrophils % (A) 64 %; Platelet Count 201 k/uL (150-450); RBC 4.35 m/uL (3.80-5.40); RDW 15.4 % (11.5-15.5); WBC 6.6 k/uL (3.8-10.6)
[2019-01-26] MEDS: METOPROLOL TARTRATE 50 MG TAB PO SCH ×2 (08:03→21:11)
[2019-01-26] MEDS: NICOTINE 21MG/24HR PATCH TRANSDERM SCH (08:03)
[2019-01-26] MEDS: ENOXAPARIN 30 MG/0.3 ML SYRINGE SQ SCH (08:03)
[2019-01-26 08:07] LABS: Calcium 12.3 mg/dL (8.4-10.2)
--- NOTE | 2019-01-26 08:41 | P.NPCON ---
History of Present Illness - Reason for Consult acute renal failure - History of Present Illness Reason for consultation: Acute kidney injury and hypercalcemia History of present illness: Patient is a 73-year-old female seen in renal consultation for acute kidney injury. Patient's creatinine on admission was 1.77 and is down to 1.57 today. Calcium level was noted to be 13.5 and is down to 12.3 today. Patient presented to the hospital with generalized weakness. She also sustained a fall. Patient states she got up too fast and fell. She's been having intermittent episodes of vomiting over the last week. Denies use of nonsteroidals. Denies chest pain or shortness of breath. No edema. No hematuria or dysuria. Oral intake is fair. She does have history of diabetes mellitus. She does take daily vitamin D. Creatinine on 01/08/2018 was 1. Urinalysis reveals trace proteinuria. No evidence of volume overload noted on chest x-ray. Hemodynamically stable. No fever or chills. No abdominal pain. Vital signs are stable. General: The patient appeared well nourished and normally developed. HEENT: Head exam is unremarkable. Neck is without jugular venous distension. LUNGS: Lungs are clear to auscultation and percussion. Breath sounds decreased. HEART: Rate and Rhythm are regular. First and second heart sounds normal. No murmurs, rubs or gallops. ABDOMEN: Abdominal exam reveals normal bowel sounds. Non-tender and non- distended. No evidence of peritonitis. EXTREMITITES: No clubbing, cyanosis, or edema. Past Medical History Past Medical History: Atrial Fibrillation, Diabetes Mellitus, Deep Vein Thrombosis (DVT), Fibromyalgia, Hyperlipidemia, Hypertension, Myocardial Infarction (AR), Thyroid Disorder, Vascular Disorder Additional Past Medical History / Comment(s): PAD, PSORIATIC ARTHRITIS. LEFT KIDNEY STONE. Last Myocardial Infarction Date:: 08/16/2014 History of Any Multi-Drug Resistant Organisms: None Reported Past Surgical History: Section, Heart Catheterization, Heart Catheterization With Stent Additional Past Surgical History / Comment(s): LEFT SUPERFICIAL FEMORAL ARTERY STENT.COLONOSCOPY, BILATERAL BREAST BIOPSY.NEPHROLITHOTOMY, LITHOTRIPSY, 08/05 cardiac stent, Arthrectomy Past Anesthesia/Blood Transfusion Reactions: No Reported Reaction Date of Last Stent Placement:: 2013 Past Psychological History: Depression Smoking Status: Current some day smoker Past Alcohol Use History: None Reported Additional Past Alcohol Use History / Comment(s): taking a puff here and there. Past Drug Use History: None Reported - Past Family History Mother Family Medical History: Myocardial Infarction (AR) Additional Family Medical History / Comment(s): MOTHER OF A HEART ATTACK AT AGE OF 63 Sister(s) Family Medical History: Cancer Additional Family Medical History / Comment(s): SISTER HAD OVARIAN CANCER Brother(s) Family Medical History: Cancer Additional Family Medical History / Comment(s): BONE CANCER,prostate,brain,cabg Medications and Allergies Home Medications Medication Instructions Recorded Confirmed Type Clopidogrel [Plavix] 75 mg PO DAILY 02/24/14 11/08/18 History DULoxetine HCL [Cymbalta] 60 mg PO HS 02/24/14 11/08/18 History Fish Oil/Dha/Epa [Fish Oil 1,200 1,000 mg PO DAILY 02/24/14 11/08/18 History mg Fish Oil] Folic Acid 1 mg PO DAILY 02/24/14 01/25/19 History Gabapentin [Neurontin] 300 mg PO BID 02/24/14 11/08/18 History INSULIN LISPRO (humaLOG) [humaLOG] 20 unit SQ AC-BRKFST PRN 02/24/14 11/08/18 History INSULIN LISPRO (humaLOG) [humaLOG] 25 unit SQ AC-LUNCH PRN 02/24/14 11/08/18 History INSULIN LISPRO (humaLOG) [humaLOG] 25 unit SQ AC-SUPPER PRN 02/24/14 11/08/18 History Insulin Detemir [Levemir Flexpen] 70 units SQ QAM 02/24/14 11/08/18 History Levothyroxine Sodium [Synthroid] 75 mcg PO QAM 02/24/14 11/08/18 History Nitroglycerin Sl Tabs [Nitrostat] 0.4 mg SUBLINGUAL DIRECTED PRN 02/24/14 11/08/18 History Ascorbic Acid [Vitamin C] 500 mg PO DAILY 08/16/14 11/08/18 History Atorvastatin [Lipitor] 80 mg PO HS #30 tab 08/18/14 11/08/18 Rx Metoprolol Tartrate [Lopressor] 25 mg PO BID #60 tab 08/18/14 01/25/19 Rx Cyanocobalamin (Vitamin B-12) 1,000 mcg PO DAILY 11/11/14 11/08/18 History [B-12] Fluticasone Propionate [Flonase] 1 spr EA NOSTRIL DAILY PRN 11/11/14 11/08/18 History Magnesium Oxide [Mag-Ox] 400 mg PO DAILY 11/11/14 01/25/19 History inFLIXimab [Remicade] 400 mg IM DIRECTED 11/11/14 11/08/18 History Cholecalciferol [Vitamin D3] 2,000 unit PO DAILY 12/10/14 01/25/19 History Triamcinolone 0.1% Cream [Kenalog 1 applic TOPICAL DAILY PRN 01/05/16 11/08/18 History 0.1% Cream] Aspirin 81 mg PO DAILY 08/24/17 01/25/19 History Enalapril [Vasotec] 2.5 mg PO DAILY 01/25/19 01/25/19 History Pioglitazone [Actos] 15 mg PO DAILY 01/25/19 01/25/19 History Allergies Allergy/AdvReac Type Severity Reaction Status Date / Time adhesive Allergy Itching Verified 01/25/19 15:33 Penicillins Allergy Swelling,hi Verified 01/25/19 15:33 ves Physical Exam Vitals: Vital Signs Temp Pulse Pulse Resp BP BP Pulse Ox 01/26/19 05:00 97.8 F 115 H 16 136/80 98 01/25/19 22:53 122 H 16 01/25/19 22:05 107 H 100/48 93 L 01/25/19 21:00 98.0 F 117 H 16 99/65 95 01/25/19 19:50 16 01/25/19 18:22 97.4 F L 70 16 131/81 98 01/25/19 17:00 97 16 126/98 96 01/25/19 16:00 96 01/25/19 15:07 105 H 20 126/98 97 01/25/19 13:03 102 H 18 114/71 97 01/25/19 11:31 98.0 F 96 16 124/53 98 Intake and Output 01/25/19 01/26/19 01/26/19 22:59 06:59 14:59 Intake Total 1070 890 Balance 1070 890 Intake: Intake, IV Titration 650 Amount Levofloxacin 250Mg-D5w 50 Pmx 250 mg In Dextrose/ Water 1 50ml.bag @ 50 mls /hr IVPB Q24H ABDOUL Rx#: [id number] Sodium Chloride 0.9% 1, 600 000 ml @ 100 mls/hr IV . Q10H ABDOUL Rx#:[id number] Oral 1070 240 Other: Voiding Method Bedside Commode # Voids 2 Results - Lab Results Most recent lab results Calcium 12.3 mg/dL (8.4-10.2) H 01/26/19 07:03 Magnesium 2.0 mg/dL (1.6-2.3) 01/25/19 11:50 01/26/19 07:09 01/26/19 07:03 Assessment and Plan Plan: Assessment: 1. Acute kidney injury secondary to ATN secondary to hypercalcemia. Creatinine was 1.77 on admission and is 1.57 today. In December 2017 her creatinine was as low as 1. UA reveals trace proteinuria. 2. Hypercalcemia secondary to volume contraction as well as vitamin D supplementation. 3. Mild hyponatremia secondary to acute kidney injury. 4. Insulin-dependent diabetes mellitus. Plan: Maintain normal saline at 100 mL an hour. Patient did receive 3 L of normal saline in the ER. Check PTH, vitamin D, 125 daily 3, SETH level and electrophoresis studies. Hold vitamin D. Repeat electrolytes in the morning. Thank you for the consultation. I will continue to follow the patient with you during her hospital stay.
[2019-01-26 11:44] LABS: Glucose,Whole Blood 190 mg/dL (75-99)
[2019-01-26] MEDS ORDERED: NITROGLYCERIN SL TABS 0.4 MG TAB SUBLINGUAL PRN (12:38)
[2019-01-26] MEDS: PIOGLITAZONE 15 MG TAB PO SCH (13:25)
--- NOTE | 2019-01-26 16:18 | P.HPIM ---
History of Present Illness H&P Date: 01/26/19 Chief Complaint: weakness dehydration this is a pleasant 73-year-old female patient of Dr. Grijalva. She has underlying history off CAD with prior cardiac stents, diabetes mellitus type 2, hypothyroidism, psoriasis, CK D stage III, fibromyalgia, admitted to the hospital secondary to acute dehydration presenting with diminished appetite, generalized muscle aches, vomiting, intermittent along with 2 episodes of diarrhea prior to admission.she denies any melena hematochezia, hemoptysis, patient denies any recent NSAID use, no new medication changes from her PCP.patient denies any chest pain no palpitations headache no lightheadedness syncope or falls. In emergency room, she presented with creatinine of 1.77, previous baseline of 1.4, calcium was elevated at 13.5, liver function tests normal,urinalyses is unremarkable except for hyaline cast, WBC 4, IBC 2, specific gravity of 1.010 trace proteinuriaEKG shows atrial fibrillation with rapid ventricular rate heart rate of 107patient was admitted secondary to the hyperkalemia, in no acute kidney injury, no CPKwas done on admission, troponin is normal at 0.012, glucose of 102. CAT scan of the brain chest x-rays were reviewed , brain CT shows mild chronic-appearing white matter ischemic changecervical spine shows no acute rashes abnormality, including the stasis, there is a c3 C4 moderate left foraminal stenosis, chest x-ray no acute pulmonary process no osseus abnormality Patient was admitted with renal consultation, Review of Systems Constitutional: Reports anorexia, Reports fatigue, Reports lethargy, Reports poor appetite Ears: bilateral: decreased hearing, deny: earache, tinnitus Ears, nose, mouth and throat: Reports as per HPI, Denies ant. neck pain, Denies bleeding gums, Denies dental pain, Denies dysphagia, Denies epistaxis, Denies headache, Denies hoarseness, Denies mouth pain, Denies nasal congestion, Denies nasal discharge, Denies neck fullness/pressure, Denies neck lump, Denies nose pain, Denies odynophagia, Denies post-nasal drip, Denies sinus pain, Denies sinus pressure, Denies swelling in mouth, Denies swelling in throat, Denies sore throat, Denies vertigo, Denies voice changes Cardiovascular: Reports as per HPI, Denies chest pain, Denies claudication, Denies decreased exercise tolerance, Denies dyspnea on exertion, Denies edema, Denies high blood pressure, Denies irregular heart beat, Denies leg edema, Denies lightheadedness, Denies orthopnea, Denies palpitations, Denies paroxysmal nocturnal dyspnea, Denies phlebitis, Denies rapid heart beat, Denies shortness o f breath, Denies syncope Respiratory: Denies as per HPI, Denies congestion, Denies cough, Denies cough with sputum, Denies dyspnea, Denies excessive sputum, Denies hemoptysis, Denies home oxygen, Denies pain, Denies pain on inspiration, Denies pleurisy, Denies respiratory infections, Denies sleep apnea, Denies snoring, Denies wheezing Gastrointestinal: Reports as per HPI, Reports diarrhea, Reports indigestion, Reports loss of appetite, Reports nausea, Reports vomiting, Denies abdominal pain, Denies belching, Denies bloating, Denies BRBPR, Denies change in bowel habits, Denies coffee ground emesis, Denies constipation, Denies dyspepsia, Denies early satiety, Denies excessive gas, Denies heartburn, Denies hematemesis, Denies hematochezia, Denies jaundice, Denies lactose intolerance, Denies melena Genitourinary: Reports as per HPI, Denies abnormal vaginal bleeding, Denies decreased libido, Denies difficulty conceiving, Denies difficulty voiding, Denies dysmenorrhea, Denies dyspareunia, Denies dysuria, Denies flank pain, Denies genital sores, Denies hematuria, Denies hot flashes, Denies incomplete emptying, Denies kidney stones, Denies menorrhagia, Denies mixed incontinence, Denies nocturia, Denies pelvic pain, Denies post void dribbling, Denies , Denies prolapse symptoms, Denies stress incontinence, Denies urge incontinence, Denies urgency, Denies urinary frequency, Denies vaginal discharge, Denies vaginal dryness, Denies vaginal itching, Denies vaginal odor Menstruation: Reports as per HPI, Denies amenorrhea, Denies amenorrhea on BC, Denies currently menstrual, Denies cycle < 21 days, Denies cycle > 35 days, Denies cycle variable, Denies menses 1-7 days, Denies menses 8 or > days, Denies menses variable, Denies period heavy, Denies period light, Denies period normal, Denies period spotting, Denies post hysterectomy, Denies postmenopausal, Denies premenarcheal Musculoskeletal: Reports as per HPI, Denies arm numbness/tingling, Denies atr ophy, Denies fractures, Denies frequent falls, Denies gait dysfunction, Denies hot joints, Denies leg numbness/tingling, Denies limitation of motion, Denies loss of height, Denies low back pain, Denies morning stiffness, Denies muscle cramps, Denies muscle weakness, Denies myalgias, Denies neck pain, Denies neck stiffness, Denies prior amputations, Denies redness of joints, Denies shooting arm pain, Denies shooting leg pain Integumentary: Reports as per HPI, Denies acne, Denies boils, Denies brittle nails, Denies change in hair/nails, Denies color changes, Denies darkening of skin, Denies depigmentation, Denies dryness, Denies foot/leg ulcers, Denies growths, Denies hirsutism, Denies lesions, Denies onychomycosis, Denies pruritus, Denies rash, Denies sores, Denies striae, Denies unusual bruising, Denies wounds Neurological: Reports as per HPI, Denies aphasia, Denies ataxia, Denies balance difficulties, Denies burning pain, Denies change in mentation, Denies change in smell/taste, Denies change in speech, Denies confusion, Denies convulsions, Denies double vision, Denies gait dysfunction, Denies head injury, Denies headaches, Denies hearing difficulties, Denies lack of coordination, Denies loss of vision, Denies memory loss, Denies migraines, Denies motor disturbance, Denies numbness, Denies paralysis, Denies paresthesias, Denies seizures, Denies sensory deficit, Denies spasticity, Denies syncope, Denies tic, Denies tingling, Denies transient paralysis, Denies tremors, Denies vertigo, Denies weakness, Denies visual changes Psychiatric: Reports as per HPI, Denies anhedonia, Denies anxiety, Denies anx iety attacks, Denies change in appetite, Denies change in libido, Denies change in sleep habits, Denies confusion, Denies depression, Denies difficulty concentrating, Denies disorientation, Denies hallucinations, Denies hopelessness, Denies hypersomnia, Denies insomnia, Denies irritability, Denies m antione loss, Denies mood swings, Denies paranoia, Denies sadness/tearfulness, Denies sleep disturbances, Denies suicidal ideation Endocrine: Reports as per HPI, Denies cold intolerance, Denies deepening of the voice, Denies excessive sweating, Denies excessive thirst, Denies fatigue, Denies flushing, Denies heat intolerance, Denies high blood sugars, Denies increase in ring/shoe/hat size, Denies low blood sugars, Denies nocturia, Denies palpitations, Denies polydipsia, Denies polyphagia, Denies polyuria, Denies proptosis, Denies recent glucocorticoid use, Denies thyroid mass, Denies weight change Hematologic/Lymphatic: Reports as per HPI, Denies easy bleeding, Denies easy bruising, Denies lymphadenopathy, Denies lymphedema, Denies thrombophilia Allergic/Immunologic: Reports as per HPI Past Medical History Past Medical History: Atrial Fibrillation, Diabetes Mellitus, Deep Vein Thrombosis (DVT), Fibromyalgia, Hyperlipidemia, Hypertension, Myocardial Infarction (AL), Thyroid Disorder, Vascular Disorder Additional Past Medical History / Comment(s): PAD, PSORIATIC ARTHRITIS. LEFT KIDNEY STONE. Last Myocardial Infarction Date:: 08/16/2014 History of Any Multi-Drug Resistant Organisms: None Reported Past Surgical History: Section, Heart Catheterization, Heart Cat heterization With Stent Additional Past Surgical History / Comment(s): LEFT SUPERFICIAL FEMORAL ARTERY STENT.COLONOSCOPY, BILATERAL BREAST BIOPSY.NEPHROLITHOTOMY, LITHOTRIPSY, 08/05 cardiac stent, Arthrectomy Past Anesthesia/Blood Transfusion Reactions: No Reported Reaction Date of Last Stent Placement:: 2013 Past Psychological History: Depression Smoking Status: Current some day smoker Past Alcohol Use History: None Reported Additional Past Alcohol Use History / Comment(s): taking a puff here and there. Past Drug Use History: None Reported - Past Family History Mother Family Medical History: Myocardial Infarction (AL) Additional Family Medical History / Comment(s): MOTHER OF A HEART ATTACK AT AGE OF 63 Sister(s) Family Medical History: Cancer Additional Family Medical History / Comment(s): SISTER HAD OVARIAN CANCER Brother(s) Family Medical History: Cancer Additional Family Medical History / Comment(s): BONE CANCER,prostate,brain,cabg Son(s) Family Medical History: No Reported History Daughter(s) Family Medical History: No Reported History Medications and Allergies Home Medications Medication Instructions Recorded Confirmed Type Clopidogrel [Plavix] 75 mg PO DAILY 02/24/14 11/08/18 History DULoxetine HCL [Cymbalta] 60 mg PO HS 02/24/14 11/08/18 History Fish Oil/Dha/Epa [Fish Oil 1,200 1,000 mg PO DAILY 02/24/14 11/08/18 History mg Fish Oil] Folic Acid 1 mg PO DAILY 02/24/14 01/25/19 History Gabapentin [Neurontin] 300 mg PO BID 02/24/14 11/08/18 History INSULIN LISPRO (humaLOG) [humaLOG] 20 unit SQ AC-BRKFST PRN 02/24/14 11/08/18 History INSULIN LISPRO (humaLOG) [humaLOG] 25 unit SQ AC-LUNCH PRN 02/24/14 11/08/18 History INSULIN LISPRO (humaLOG) [humaLOG] 25 unit SQ AC-SUPPER PRN 02/24/14 11/08/18 History Insulin Detemir [Levemir Flexpen] 70 units SQ QAM 02/24/14 11/08/18 History Levothyroxine Sodium [Synthroid] 75 mcg PO QAM 02/24/14 11/08/18 History Nitroglycerin Sl Tabs [Nitrostat] 0.4 mg SUBLINGUAL DIRECTED PRN 02/24/14 History Ascorbic Acid [Vitamin C] 500 mg PO DAILY 08/16/14 11/08/18 History Atorvastatin [Lipitor] 80 mg PO HS #30 tab 08/18/14 11/08/18 Rx Metoprolol Tartrate [Lopressor] 25 mg PO BID #60 tab 08/18/14 01/25/19 Rx Cyanocobalamin (Vitamin B-12) 1,000 mcg PO DAILY 11/11/14 11/08/18 History [B-12] Fluticasone Propionate [Flonase] 1 spr EA NOSTRIL DAILY PRN 11/11/14 11/08/18 History Magnesium Oxide [Mag-Ox] 400 mg PO DAILY 11/11/14 01/25/19 History inFLIXimab [Remicade] 400 mg IM DIRECTED 11/11/14 11/08/18 History Cholecalciferol [Vitamin D3] 2,000 unit PO DAILY 12/10/14 01/25/19 History Triamcinolone 0.1% Cream [Kenalog 1 applic TOPICAL DAILY PRN 01/05/16 11/08/18 History 0.1% Cream] Aspirin 81 mg PO DAILY 08/24/17 01/25/19 History Enalapril [Vasotec] 2.5 mg PO DAILY 01/25/19 01/25/19 History Pioglitazone [Actos] 15 mg PO DAILY 01/25/19 01/25/19 History Allergies Allergy/AdvReac Type Severity Reaction Status Date / Time adhesive Allergy Itching Verified 01/25/19 15:33 Penicillins Allergy Swelling,hi Verified 01/25/19 15:33 ves Physical Exam Vitals: Vital Signs Temp Pulse Pulse Resp BP BP Pulse Ox 01/26/19 05:00 97.8 F 115 H 16 136/80 98 01/25/19 22:53 122 H 16 01/25/19 22:05 107 H 100/48 93 L 01/25/19 21:00 98.0 F 117 H 16 99/65 95 01/25/19 19:50 16 01/25/19 18:22 97.4 F L 70 16 131/81 98 01/25/19 17:00 97 16 126/98 96 01/25/19 16:00 96 01/25/19 15:07 105 H 20 126/98 97 01/25/19 13:03 102 H 18 114/71 97 Intake and Output 01/25/19 01/26/19 01/26/19 22:59 06:59 14:59 Intake Total 1070 890 Balance 1070 890 Intake: Intake, IV Titration 650 Amount Levofloxacin 250Mg-D5w 50 Pmx 250 mg In Dextrose/ Water 1 50ml.bag @ 50 mls /hr IVPB Q24H [facility] Rx#: [id number] Sodium Chloride 0.9% 1, 600 000 ml @ 100 mls/hr IV . Q10H A[facility] Rx#:[id number] Oral 1070 240 Other: Voiding Method Bedside Commode Bedpan # Voids 2 2 - Constitutional General appearance: cooperative, no acute distress, obese - EENT Eyes: anicteric sclerae, EOMI, PERRLA, dentition normal, normal appearance ENT: hard of hearing, NA/AT, normal oropharynx - Neck Neck: no lymphadenopathy, normal ROM, no other, no rigidity, no stridor, no thyromegaly Thyroid: bilateral: normal size, negative: enlarged, firm, nodule - Respiratory Respiratory: bilateral: CTA, negative: diminished, dullness, rales, rhonchi - Cardiovascular Rhythm: regular Heart sounds: normal: S1, S2 Abnormal Heart Sounds: no systolic murmur, no diastolic murmur, no rub, no S3 Gallop, no S4 Gallop, no click, no other - Gastrointestinal General gastrointestinal: normal bowel sounds, soft - Integumentary Integumentary: decreased turgor, normal - Neurologic Neurologic: CNII-XII intact - Musculoskeletal Musculoskeletal: gait normal, strength equal bilaterally - Psychiatric Psychiatric: A&O x's 3, appropriate affect, intact judgment & insight Results CBC & Chem 7: 01/26/19 07:09 01/26/19 07:03 Labs: Abnormal Lab Results - Last 24 Hours (Table) 01/25/19 01/25/19 01/25/19 Range/Units 11:50 13:54 20:26 Sodium 134 L (137-145) mmol/L BUN 35 H (7-17) mg/dL Creatinine 1.77 H (0.52-1.04) mg/dL Glucose 102 H (74-99) mg/dL POC Glucose (mg/dL) 142 H (75-99) mg/dL Calcium 13.5 H* (8.4-10.2) mg/dL Urine Appearance Cloudy H (Clear) Urine Protein Trace H (Negative) Ur Leukocyte Esterase Small H (Negative) Urine Bacteria Occasional H (None) /hpf Hyaline Casts 26 H (0-2) /lpf Urine Mucus Rare H (None) /hpf 01/26/19 01/26/19 01/26/19 Range/Units 07:03 07:10 11:43 Sodium 134 L (137-145) mmol/L BUN 32 H (7-17) mg/dL Creatinine 1.57 H (0.52-1.04) mg/dL Glucose 139 H (74-99) mg/dL POC Glucose (mg/dL) 146 H 190 H (75-99) mg/dL Calcium 12.3 H (8.4-10.2) mg/dL Urine Appearance (Clear) Urine Protein (Negative) Ur Leukocyte Esterase (Negative) Urine Bacteria (None) /hpf Hyaline Casts (0-2) /lpf Urine Mucus (None) /hpf Laboratory Results WBC 6.6 k/uL (3.8-10.6) 01/26/19 07:09 RBC 4.35 m/uL (3.80-5.40) 01/26/19 07:09 Hgb 13.5 gm/dL (11.4-16.0) 01/26/19 07:09 Hct 40.1 % (34.0-46.0) 01/26/19 07:09 MCV 92.3 fL (80.0-100.0) 01/26/19 07:09 MCH 31.1 pg (25.0-35.0) 01/26/19 07:09 MCHC 33.7 g/dL (31.0-37.0) 01/26/19 07:09 RDW 15.4 % (11.5-15.5) 01/26/19 07:09 Plt Count 201 k/uL (150-450) 01/26/19 07:09 Neutrophils % 64 % 01/26/19 07:09 Lymphocytes % 20 % 01/26/19 07:09 Monocytes % 9 % 01/26/19 07:09 Eosinophils % 4 % 01/26/19 07:09 Basophils % 1 % 01/26/19 07:09 Neutrophils # 4.2 k/uL (1.3-7.7) 01/26/19 07:09 Lymphocytes # 1.3 k/uL (1.0-4.8) 01/26/19 07:09 Monocytes # 0.6 k/uL (0-1.0) 01/26/19 07:09 Eosinophils # 0.2 k/uL (0-0.7) 01/26/19 07:09 Basophils # 0.0 k/uL (0-0.2) 01/26/19 07:09 PT 10.0 sec (9.0-12.0) 01/25/19 11:50 INR 0.9 (<1.2) 01/25/19 11:50 APTT 22.8 sec (22.0-30.0) 01/25/19 11:50 Sodium 134 mmol/L (137-145) L 01/26/19 07:03 Potassium 5.0 mmol/L (3.5-5.1) 01/26/19 07:03 Chloride 103 mmol/L (98-107) 01/26/19 07:03 Carbon Dioxide 24 mmol/L (22-30) 01/26/19 07:03 Anion Gap 7 mmol/L 01/26/19 07:03 BUN 32 mg/dL (7-17) H 01/26/19 07:03 Creatinine 1.57 mg/dL (0.52-1.04) H 01/26/19 07:03 Est GFR (CKD-EPI)AfAm 37 (>60 ml/min/1.73 sqM) 01/26/19 07:03 Est GFR (CKD-EPI)NonAf 33 (>60 ml/min/1.73 sqM) 01/26/19 07:03 Glucose 139 mg/dL (74-99) H 01/26/19 07:03 POC Glucose (mg/dL) 190 mg/dL (75-99) H 01/26/19 11:43 POC Glu [employer] Supervisor ID Iliana Hu 01/26/19 11:43 Plasma Lactic Acid Rashaad 1.8 mmol/L (0.7-2.0) 01/25/19 11:50 Calcium 12.3 mg/dL (8.4-10.2) H 01/26/19 07:03 Phosphorus 2.9 mg/dL (2.5-4.5) 01/26/19 07:09 Magnesium 2.0 mg/dL (1.6-2.3) 01/25/19 11:50 Total Bilirubin 0.9 mg/dL (0.2-1.3) 01/25/19 11:50 AST 33 U/L (14-36) 01/25/19 11:50 ALT 33 U/L (9-52) 01/25/19 11:50 Alkaline Phosphatase 64 U/L (38-126) 01/25/19 11:50 Troponin I 0.012 ng/mL (0.000-0.034) 01/25/19 11:50 Total Protein 6.6 g/dL (6.3-8.2) 01/25/19 11:50 Albumin 3.6 g/dL (3.5-5.0) 01/25/19 11:50 Urine Color Yellow 01/25/19 13:54 Urine Appearance Cloudy (Clear) H 01/25/19 13:54 Urine pH 5.0 (5.0-8.0) 01/25/19 13:54 Ur Specific Cecil 1.010 (1.001-1.035) 01/25/19 13:54 Urine Protein Trace (Negative) H 01/25/19 13:54 Urine Glucose (UA) Negative (Negative) 01/25/19 13:54 Urine Ketones Negative (Negative) 01/25/19 13:54 Urine Blood Negative (Negative) 01/25/19 13:54 Urine Nitrite Negative (Negative) 01/25/19 13:54 Urine Bilirubin Negative (Negative) 01/25/19 13:54 Urine Urobilinogen <2.0 mg/dL (<2.0) 01/25/19 13:54 Ur Leukocyte Esterase Small (Negative) H 01/25/19 13:54 Urine RBC 2 /hpf (0-5) 01/25/19 13:54 Urine WBC 4 /hpf (0-5) 01/25/19 13:54 Ur Squamous Epith Cells 3 /hpf (0-4) 01/25/19 13:54 Urine Bacteria Occasional /hpf (None) H 01/25/19 13:54 Hyaline Casts 26 /lpf (0-2) H 01/25/19 13:54 Urine Mucus Rare /hpf (None) H 01/25/19 13:54 Thrombosis Risk Factor Assmnt - DVT/VTE Prophylaxis DVT/VTE Prophylaxis: Pharmacologic Prophylaxis ordered, Low risk, early ambulation encouraged - Choose All That Apply Any of the Below Risk Factors Present?: Yes Each Factor Represents 1 point: Obesity (BMI >25) Other Risk Factors: No Each Risk Factor Represents 2 Points: Age 61-74 years Thrombosis Risk Factor Assessment Total Risk Factor Score: 3 Thrombosis Risk Factor Assessment Level: Moderate Risk Assessment and Plan Plan: 1. Hypercalcemia with underlying CK D stage III acute kidney injury secondary to dehydration, urinalysis also shows mild proteinuria, with normal specific gravity. Patient is currently hydrated, evaluate for cause of hypercalcemia, messi level and serum protein electrophoresis has been requested by nephrology including vitamin D levels, we'll going to obtain PTH levels evaluate for prima ry hyperparathyroidism again secondary hyperparathyroidism. IV hydration,at the 100 mL an hour, vitamin D supplementation has been discontinued 2. Diabetes mellitus type 2,surveillance as outpatientfor hemoglobin A1c, patient is onActos, Accu-Cheks and NovoLog scale, 3. Hypertension, on metoprolol 50 mg twice a day 4.Cervicaldisc dse with spinal stenosis mod c3c4 based by x-rayson gabapentin 300 mg twice a day, on Cymbalta, and Tylenol. Patient is not on NSAIDs 5.Current tobacco use on nicotine patches 6.Hypothyroidism, on levothyroxine no changes made to 75 g daily 7.DVT prophylaxis using Lovenox next 8.GI prophylaxis with Pepcid
[2019-01-26 17:37] LABS: Glucose,Whole Blood 209 mg/dL (75-99)
[2019-01-26] MEDS ORDERED: INSULIN ASPART (NovoLOG) 100 UNIT/ML VIAL SQ ONE (17:46)
[2019-01-26 20:04] LABS: Glucose,Whole Blood 141 mg/dL (75-99)
[2019-01-26] MEDS ORDERED: METOPROLOL TARTRATE 25 MG TAB PO SCH (21:00)
[2019-01-26] MEDS: ATORVASTATIN 80 MG TAB PO SCH (21:11)
[2019-01-26] MEDS: DULoxetine HCL 60 MG CAPSULE.DR PO SCH (21:11)
[2019-01-26] MEDS: GABAPENTIN 300 MG CAP PO SCH (21:11)
[2019-01-26] MEDS: INSULIN DETEMIR (LEVEMIR) 100 UNIT/ML SYR SQ SCH (21:11)
[2019-01-27] MEDS: LEVOFLOXACIN 250MG-D5W PMX 250 MG in DEXTROSE/WATER 1 50ML.BAG IVPB SCH (02:29)
[2019-01-27 07:16] LABS: Glucose,Whole Blood 150 mg/dL (75-99)
[2019-01-27] MEDS: GABAPENTIN 300 MG CAP PO SCH ×2 (07:34→22:08)
[2019-01-27] MEDS: METOPROLOL TARTRATE 50 MG TAB PO SCH ×2 (07:34→22:08)
[2019-01-27] MEDS: PIOGLITAZONE 15 MG TAB PO SCH (07:35)
[2019-01-27] MEDS: NICOTINE 21MG/24HR PATCH TRANSDERM SCH (07:35)
[2019-01-27] MEDS: ASPIRIN 81 MG PO SCH (07:35)
[2019-01-27] MEDS: CLOPIDOGREL 75 MG TAB PO SCH (07:35)
[2019-01-27] MEDS: LEVOTHYROXINE 75 MCG TAB PO SCH (07:35)
[2019-01-27] MEDS: INSULIN ASPART (NovoLOG) 100 UNIT/ML VIAL SQ SCH ×4 (07:36→22:09)
[2019-01-27] MEDS: SODIUM CHLORIDE 0.9% 1,000 ML IV SCH ×3 (07:37→22:11)
[2019-01-27] MEDS: MAGNESIUM OXIDE 400 MG TAB PO SCH (07:37)
[2019-01-27] MEDS: ENOXAPARIN 30 MG/0.3 ML SYRINGE SQ SCH (07:37)
--- NOTE | 2019-01-27 08:15 | P.PN ---
Subjective Patient is seen in follow-up for acute kidney injury. Creatinine was 1.77 on admission and was down to 1.57 as of yesterday. She was also hypercalcemic. Calcium was 12.3 as of yesterday. Labs from today are pending. She is currently sitting up in chair having breakfast. Overall feels better. No vomiting or diarrhea. No chest pain or shortness of breath. Good urine output. Vital signs are stable. General: The patient appeared well nourished and normally developed. HEENT: Head exam is unremarkable. Neck is without jugular venous distension. LUNGS: Lungs are clear to auscultation and percussion. Breath sounds decreased. HEART: Rate and Rhythm are regular. First and second heart sounds normal. No murmurs, rubs or gallops. ABDOMEN: Abdominal exam reveals normal bowel sounds. Non-tender and non- distended. No evidence of peritonitis. EXTREMITITES: No clubbing, cyanosis, or edema. Objective - Vital Signs Vital signs: Vital Signs Temp 97.6 F 01/27/19 05:00 Pulse 79 01/27/19 05:00 Resp 16 01/27/19 05:00 BP 141/63 01/27/19 05:00 Pulse Ox 96 01/27/19 05:00 Intake & Output 01/26/19 01/27/19 01/27/19 18:59 06:59 18:59 Intake Total 1560 1500 Balance 1560 1500 Intake: Intake, IV Titration 1200 950 Amount Levofloxacin 250Mg-D5w 50 Pmx 250 mg In Dextrose/ Water 1 50ml.bag @ 50 mls /hr IVPB Q24H [facility] Rx#: [id number] Sodium Chloride 0.9% 1, 1200 900 000 ml @ 100 mls/hr IV . Q10H [facility] Rx#:[id number] Oral 360 550 Other: Voiding Method Bedpan Bedside Commode Incontinent # Voids 2 1 # Bowel Movements 0 - Labs CBC & Chem 7: 01/26/19 07:09 01/26/19 07:03 Labs: Abnormal Lab Results - Last 24 Hours (Table) 01/26/19 01/26/19 01/26/19 Range/Units 11:43 17:35 20:02 POC Glucose (mg/dL) 190 H 209 H 141 H (75-99) mg/dL 01/27/19 Range/Units 07:15 POC Glucose (mg/dL) 150 H (75-99) mg/dL Microbiology - Last 24 Hours (Table) 01/26/19 08:00 Urine Culture - Preliminary Urine,Clean Catch Assessment and Plan Plan: Assessment: 1. Acute kidney injury secondary to ATN secondary to hypercalcemia. Creatinine was 1.77 on admission and was 1.57 as of yesterday. In December 2017 her creatinine was as low as 1. UA reveals trace proteinuria. 2. Hypercalcemia secondary to volume contraction as well as vitamin D supplementation. PTH appropriately suppressed at 20.2. 3. Mild hyponatremia secondary to acute kidney injury. 4. Insulin-dependent diabetes mellitus. Plan: Maintain normal saline at 100 mL an hour. Patient did receive 3 L of normal s ming in the ER. Follow-up vitamin D, 125 daily 3, SETH level and electrophoresis studies. Hold vitamin D. Continue to monitor renal function and urine output.
[2019-01-27 08:25] LABS: Calcium 12.8 mg/dL (8.4-10.2); Magnesium 1.5 mg/dL (1.6-2.3); Potassium 4.7 mmol/L (3.5-5.1)
[2019-01-27 11:20] LABS: Glucose,Whole Blood 148 mg/dL (75-99)
--- NOTE | 2019-01-27 14:47 | P.PN ---
Subjective Progress Note Date: 01/27/19 Chief Complaint: weakness dehydration this is a pleasant 73-year-old female patient of Dr. Grijalva. She has underlying history off CAD with prior cardiac stents, diabetes mellitus type 2, hypothyroidism, psoriasis, CK D stage III, fibromyalgia, admitted to the hospital secondary to acute dehydration presenting with diminished appetite, generalized muscle aches, vomiting, intermittent along with 2 episodes of diarrhea prior to admission.she denies any melena hematochezia, hemoptysis, patient denies any recent NSAID use, no new medication changes from her PCP.patient denies any chest pain no palpitations headache no lightheadedness syncope or falls. In emergency room, she presented with creatinine of 1.77, previous baseline of 1.4, calcium was elevated at 13.5, liver function tests normal,urinalyses is unremarkable except for hyaline cast, WBC 4, IBC 2, specific gravity of 1.010 trace proteinuriaEKG shows atrial fibrillation with rapid ventricular rate heart rate of 107patient was admitted secondary to the hyperkalemia, in no acute kidney injury, no CPKwas done on admission, troponin is normal at 0.012, glucose of 102. CAT scan of the brain chest x-rays were reviewed , brain CT shows mild chronic-appearing white matter ischemic changecervical spine shows no acute rashes abnormality, including the stasis, there is a c3 C4 moderate left foraminal stenosis, chest x-ray no acute pulmonary process no osseus abnormality Patient was admitted with renal consultation, /: Patient is currently hydrated however she still has minimal appetite, still requiring 8 units of Levemir, instead of usual 70 units at home, patient has no muscle aches on nausea and abdominal pain, still weak, laboratories shows improvement of hypercalcemia with the current level of 12.8 PTH is normal, pending vitamin D levels and serum protein electrophoresis Review of Systems Constitutional: Reports anorexia, Reports fatigue, Reports lethargy, Reports poor appetite Ears: bilateral: decreased hearing, deny: earache, tinnitus Ears, nose, mouth and throat: Reports as per HPI, Denies ant. neck pain, Denies bleeding gums, Denies dental pain, Denies dysphagia, Denies epistaxis, Denies headache, Denies hoarseness, Denies mouth pain, Denies nasal congestion, Denies nasal discharge, Denies neck fullness/pressure, Denies neck lump, Denies nose pain, Denies odynophagia, Denies post-nasal drip, Denies sinus pain, Denies sinus pressure, Denies swelling in mouth, Denies swelling in throat, Denies sore throat, Denies vertigo, Denies voice changes Cardiovascular: Reports as per HPI, Denies chest pain, Denies claudication, Denies decreased exercise tolerance, Denies dyspnea on exertion, Denies edema, Denies high blood pressure, Denies irregular heart beat, Denies leg edema, Denies lightheadedness, Denies orthopnea, Denies palpitations, Denies paroxysmal nocturnal dyspnea, Denies phlebitis, Denies rapid heart beat, Denies shortness of breath, Denies syncope Respiratory: Denies as per HPI, Denies congestion, Denies cough, Denies cough with sputum, Denies dyspnea, Denies excessive sputum, Denies hemoptysis, Denies home oxygen, Denies pain, Denies pain on inspiration, Denies pleurisy, Denies respiratory infections, Denies sleep apnea, Denies snoring, Denies wheezing Gastrointestinal: Reports as per HPI, Reports diarrhea, Reports indigestion, Reports loss of appetite, Reports nausea, Reports vomiting, Denies abdominal pain, Denies belching, Denies bloating, Denies BRBPR, Denies change in bowel habits, Denies coffee ground emesis, Denies constipation, Denies dyspepsia, Denies early satiety, Denies excessive gas, Denies heartburn, Denies hematemesis, Denies hematochezia, Denies jaundice, Denies lactose intolerance, Denies melena Genitourinary: Reports as per HPI, Denies abnormal vaginal bleeding, Denies decreased libido, Denies difficulty conceiving, Denies difficulty voiding, D enies dysmenorrhea, Denies dyspareunia, Denies dysuria, Denies flank pain, Denies genital sores, Denies hematuria, Denies hot flashes, Denies incomplete emptying, Denies kidney stones, Denies menorrhagia, Denies mixed incontinence, Denies nocturia, Denies pelvic pain, Denies post void dribbling, Denies , Denies prolapse symptoms, Denies stress incontinence, Denies urge incontinence, Denies urgency, Denies urinary frequency, Denies vaginal discharge, Denies vaginal dryness, Denies vaginal itching, Denies vaginal odor Menstruation: Reports as per HPI, Denies amenorrhea, Denies amenorrhea on BC, Denies currently menstrual, Denies cycle < 21 days, Denies cycle > 35 days, Denies cycle variable, Denies menses 1-7 days, Denies menses 8 or > days, Denies menses variable, Denies period heavy, Denies period light, Denies period normal, Denies period spotting, Denies post hysterectomy, Denies postmenopausal, Denies premenarcheal Musculoskeletal: Reports as per HPI, Denies arm numbness/tingling, Denies atrophy, Denies fractures, Denies frequent falls, Denies gait dysfunction, Denies hot joints, Denies leg numbness/tingling, Denies limitation of motion, Denies loss of height, Denies low back pain, Denies morning stiffness, Denies muscle cramps, Denies muscle weakness, Denies myalgias, Denies neck pain, Denies neck stiffness, Denies prior amputations, Denies redness of joints, Denies shooting arm pain, Denies shooting leg pain Integumentary: Reports as per HPI, Denies acne, Denies boils, Denies brittle niesha ls, Denies change in hair/nails, Denies color changes, Denies darkening of skin, Denies depigmentation, Denies dryness, Denies foot/leg ulcers, Denies growths, Denies hirsutism, Denies lesions, Denies onychomycosis, Denies pruritus, Denies rash, Denies sores, Denies striae, Denies unusual bruising, Denies wounds Neurological: Reports as per HPI, Denies aphasia, Denies ataxia, Denies balance difficulties, Denies burning pain, Denies change in mentation, Denies change in smell/taste, Denies change in speech, Denies confusion, Denies convulsions, Denies double vision, Denies gait dysfunction, Denies head injury, Denies headaches, Denies hearing difficulties, Denies lack of coordination, Denies loss of vision, Denies memory loss, Denies migraines, Denies motor disturbance, Denies numbness, Denies paralysis, Denies paresthesias, Denies seizures, Denies sensory deficit, Denies spasticity, Denies syncope, Denies tic, Denies tingling, Denies transient paralysis, Denies tremors, Denies vertigo, Denies weakness, Denies visual changes Psychiatric: Reports as per HPI, Denies anhedonia, Denies anxiety, Denies anxiety attacks, Denies change in appetite, Denies change in libido, Denies change in sleep habits, Denies confusion, Denies depression, Denies difficulty concentrating, Denies disorientation, Denies hallucinations, Denies hopelessness, Denies hypersomnia, Denies insomnia, Denies irritability, Denies memory loss, Denies mood swings, Denies paranoia, Denies sadness/tearfulness, Denies sleep disturbances, Denies suicidal ideation Endocrine: Reports as per HPI, Denies cold intolerance, Denies deepening of the voice, Denies excessive sweating, Denies excessive thirst, Denies fatigue, Denies flushing, Denies heat intolerance, Denies high blood sugars, Denies increase in ring/shoe/hat size, Denies low blood sugars, Denies nocturia, Denies palpitations, Denies polydipsia, Denies polyphagia, Denies polyuria, Denies proptosis, Denies recent glucocorticoid use, Denies thyroid mass, Denies weight change Hematologic/Lymphatic: Reports as per HPI, Denies easy bleeding, Denies easy bru ising, Denies lymphadenopathy, Denies lymphedema, Denies thrombophilia Allergic/Immunologic: Reports as per HPI Objective - Vital Signs Vital signs: Vital Signs Temp 97.6 F 01/27/19 05:00 Pulse 79 01/27/19 05:00 Resp 16 01/27/19 05:00 BP 141/63 01/27/19 05:00 Pulse Ox 96 01/27/19 05:00 Intake & Output 01/26/19 01/27/19 01/27/19 18:59 06:59 18:59 Intake Total 1560 1500 1510 Balance 1560 1500 1510 Intake: Intake, IV Titration 1200 950 Amount Levofloxacin 250Mg-D5w 50 Pmx 250 mg In Dextrose/ Water 1 50ml.bag @ 50 mls /hr IVPB Q24H ABDOUL Rx#: [id number] Sodium Chloride 0.9% 1, 1200 900 000 ml @ 100 mls/hr IV . Q10H ABDOUL Rx#:[id number] Oral [id number] Other: Voiding Method Bedpan Bedside Commode Bedside Commode Incontinent # Voids 2 1 3 # Bowel Movements 0 - Constitutional General appearance: Present: cooperative, no acute distress, obese - EENT Eyes: Present: anicteric sclerae, edentulous, PERRLA, dentition normal, normal appearance ENT: Present: NA/AT, normal oropharynx - Neck Neck: Present: normal ROM - Respiratory Respiratory: bilateral: CTA, negative: diminished, dullness, rales, wheezing - Cardiovascular Rhythm: regular Heart sounds: normal: S1, S2 Abnormal Heart Sounds: Absent: systolic murmur, diastolic murmur, rub, S3 Gallop, S4 Gallop, click, other - Gastrointestinal General gastrointestinal: Present: normal bowel sounds, soft - Integumentary Integumentary: Present: decreased turgor, normal - Neurologic Neurologic: Present: CNII-XII intact - Musculoskeletal Musculoskeletal: Present: gait normal, strength equal bilaterally - Psychiatric Psychiatric: Present: A&O x's 3, appropriate affect, intact judgment & insight - Labs CBC & Chem 7: 01/26/19 07:09 01/28/19 07:53 Labs: Abnormal Lab Results - Last 24 Hours (Table) 01/26/19 01/26/19 01/27/19 Range/Units 17:35 20:02 07:15 Chloride (98-107) mmol/L BUN (7-17) mg/dL Creatinine (0.52-1.04) mg/dL Glucose (74-99) mg/dL POC Glucose (mg/dL) 209 H 141 H 150 H (75-99) mg/dL Calcium (8.4-10.2) mg/dL Magnesium (1.6-2.3) mg/dL 01/27/19 01/27/19 Range/Units 07:26 11:18 Chloride 109 H (98-107) mmol/L BUN 26 H (7-17) mg/dL Creatinine 1.59 H (0.52-1.04) mg/dL Glucose 135 H (74-99) mg/dL POC Glucose (mg/dL) 148 H (75-99) mg/dL Calcium 12.8 H (8.4-10.2) mg/dL Magnesium 1.5 L (1.6-2.3) mg/dL Microbiology - Last 24 Hours (Table) 01/26/19 08:00 Urine Culture - Preliminary Urine,Clean Catch Assessment and Plan Plan: 1. Hypercalcemia with underlying CK D stage III acute kidney injury secondary to dehydration, urinalysis also shows mild proteinuria, with normal specific gravity. Patient is currently hydrated, evaluate for cause of hypercalcemia, messi level and serum protein electrophoresis has been requested by nephrology including vitamin D levels, ruled out for primary hyperparathyroidism again secondary hyperparathyroidism, has normal PTH levels. IV hydration,at the 100 mL an hour, vitamin D supplementation has been discontinued 2. Diabetes mellitus type 2,surveillance as outpatientfor hemoglobin A1c, patient is onActos, Accu-Cheks and NovoLog scale, currently Levemir 8 units from usual dose of 70 units, appetite is still suppressed no pre-meal insulin required at this time 3. Hypertension, on metoprolol 50 mg twice a day 4.Cervical disc dse with spinal stenosis mod c3c4 based by x-rayson gabapentin 300 mg twice a day, on Cymbalta, and Tylenol. Patient is not on NSAIDs 5.Current tobacco use on nicotine patches 6.Hypothyroidism, on levothyroxine no changes made to 75 g daily 7.DVT prophylaxis using Lovenox 8.GI prophylaxis with Pepcid
[2019-01-27 17:30] LABS: Glucose,Whole Blood 159 mg/dL (75-99)
[2019-01-27 20:08] LABS: Glucose,Whole Blood 148 mg/dL (75-99)
[2019-01-27] MEDS: DULoxetine HCL 60 MG CAPSULE.DR PO SCH (22:08)
[2019-01-27] MEDS: ATORVASTATIN 80 MG TAB PO SCH (22:08)
[2019-01-27] MEDS: INSULIN DETEMIR (LEVEMIR) 100 UNIT/ML SYR SQ SCH (22:09)
[2019-01-28] MEDS: LEVOFLOXACIN 250MG-D5W PMX 250 MG in DEXTROSE/WATER 1 50ML.BAG IVPB SCH (03:36)
[2019-01-28] MEDS: LEVOTHYROXINE 75 MCG TAB PO SCH (06:26)
[2019-01-28 07:13] LABS: Glucose,Whole Blood 114 mg/dL (75-99)
[2019-01-28] MEDS: INSULIN ASPART (NovoLOG) 100 UNIT/ML VIAL SQ SCH ×4 (07:44→22:43)
[2019-01-28 08:32] LABS: Calcium 12.8 mg/dL (8.4-10.2); Magnesium 1.4 mg/dL (1.6-2.3); Potassium 4.7 mmol/L (3.5-5.1)
[2019-01-28] MEDS: ENOXAPARIN 30 MG/0.3 ML SYRINGE SQ SCH (10:01)
[2019-01-28] MEDS: NICOTINE 21MG/24HR PATCH TRANSDERM SCH (10:01)
[2019-01-28] MEDS: SODIUM CHLORIDE 0.9% 1,000 ML IV SCH ×2 (10:02→22:51)
[2019-01-28] MEDS: CLOPIDOGREL 75 MG TAB PO SCH (10:02)
[2019-01-28] MEDS: MAGNESIUM OXIDE 400 MG TAB PO SCH (10:02)
[2019-01-28] MEDS: GABAPENTIN 300 MG CAP PO SCH ×2 (10:02→22:43)
[2019-01-28] MEDS: ASPIRIN 81 MG PO SCH (10:02)
[2019-01-28] MEDS: PIOGLITAZONE 15 MG TAB PO SCH (10:03)
[2019-01-28] MEDS: METOPROLOL TARTRATE 50 MG TAB PO SCH ×3 (10:03→22:43)
[2019-01-28 11:21] LABS: Glucose,Whole Blood 137 mg/dL (75-99)
[2019-01-28] MEDS: SENNOSIDES-DOCUSATE SODIUM 1 EACH TAB PO SCH (11:52)
--- NOTE | 2019-01-28 12:00 | PN ---
PROGRESS NOTE Patient is seen for followup for acute kidney injury. Her renal function has improved. Serum creatinine is down to 1.4 mg/dL. Overall, patient states she is doing well. PHYSICAL EXAMINATION: On examination this morning, blood pressure was 131/62, heart rate 103 per minute. She is afebrile. EXAMINATION OF THE HEART: S1, S2. EXAMINATION OF THE LUNGS: Bilateral breath sounds are heard. Abdomen is soft, nontender. Examination of the lower extremities shows no significant edema. VISUALIZER exam is grossly intact. LABS: Labs show sodium 136, potassium 4.7, BUN 20, serum creatinine 1.4. ASSESSMENT: 1. Acute kidney injury associated with hypercalcemia and volume depletion, currently improved. Calcium staying at about 12.8 mg/dL. Serum creatinine down to 1.4. 2. Hypercalcemia with appropriately low PTH. The vitamin D level was also not elevated. Serum calcium has not decreased further. I will check urine and serum immunofixation as well. I do not see an SETH level which will be ordered as well. The patient is advised to avoid any calcium supplements. Continue with the normal saline for now. 3. Type 2 diabetes, maintained on Actos. 4. Chronic kidney disease with previous creatinine at about 1.2 to 1.6 mg/dL previously as of September of 2018 and October of 2018. Etiology is likely nephrosclerosis. Patient does have trace protein. She may have a component of underlying diabetic nephropathy. PLAN: Continue with normal saline. Follow up on the urine and serum immunofixation and check SETH level if not ordered. MMODL / IJN: [id number] /
[2019-01-28 12:11] LABS: Vitamin D 25 Hydroxy 25.2 ng/mL (30.0-100.0)
--- NOTE | 2019-01-28 13:11 | P.PN ---
Subjective Progress Note Date: 01/28/19 this is a pleasant 73-year-old female patient of Dr. Grijalva. She has underlying history off CAD with prior cardiac stents, diabetes mellitus type 2, hypothyroidism, psoriasis, CK D stage III, fibromyalgia, admitted to the hospital secondary to acute dehydration presenting with diminished appetite, generalized muscle aches, vomiting, intermittent along with 2 episodes of diarrhea prior to admission.she denies any melena hematochezia, hemoptysis, patient denies any recent NSAID use, no new medication changes from her PCP.patient denies any chest pain no palpitations headache no lightheadedness syncope or falls. In emergency room, she presented with creatinine of 1.77, previous baseline of 1.4, calcium was elevated at 13.5, liver function tests normal,urinalyses is unremarkable except for hyaline cast, WBC 4, IBC 2, specific gravity of 1.010 trace proteinuriaEKG shows atrial fibrillation with rapid ventricular rate heart rate of 107patient was admitted secondary to the hyperkalemia, in no acute kidney injury, no CPKwas done on admission, troponin is normal at 0.012, glucose of 102. CAT scan of the brain chest x-rays were reviewed , brain CT shows mild chronic-appearing white matter ischemic changecervical spine shows no acute rashes abnormality, including the stasis, there is a c3 C4 moderate left foraminal stenosis, chest x-ray no acute pulmonary process no osseus abnormality Patient was admitted with renal consultation, 01/27: Patient is currently hydrated however she still has minimal appetite, still requiring 8 units of Levemir, instead of usual 70 units at home, patient has no muscle aches on nausea and abdominal pain, still weak, laboratories shows improvement of hypercalcemia with the current level of 12.8 PTH is normal, pending vitamin D levels and serum protein electrophoresis 01/28: Patient states that she ate 100% of her breakfast and lunch today. Patient is noted to be in atrial fibrillation on EKG and cardiology consult added. She complains of her bilateral legs aching. Lab work this morning reveals BUN of 20 and creatinine 1.44, calcium 12.8 and magnesium 1.4. Patient has been seen by nephrology for acute kidney injury with hypercalcemia and volume depletion. Urine and serum immunofixation are pending as well as [place] level. Patient to avoid any calcium supplements. Patient is continued on IV fluids 100 mL per hour. Review Of Systems: Constitutional: No fever, no chills, no night sweats. No weight change. Reports fatigue and lethargy. No daytime sleepiness. EENT: Reports decreased hearing, tinnitus No headache. No blurred vision or double vision, no loss of vision. No loss of Hearing, no ringing in the ears, no dizziness. No nasal drainage or congestion. No epistaxis. No sore throat. Lungs: No shortness of breath, cough, no sputum production. No wheezing. Cardiovascular: No chest pain, no lower extremity edema. No palpitations. No paroxysmal nocturnal dyspnea. No orthopnea. No lightheadedness or dizziness. No syncopal episodes. Abdominal: No abdominal pain. Reports nausea and vomiting. Reports diarrhea. No constipation. No bloody or tarry stools. Denies anorexia. Genitourinary: No dysuria, increased frequency, urgency. No urinary retention. Musculoskeletal: No myalgias. No muscle weakness, no gait dysfunction, no frequent falls. No back pain. No neck pain. Integumentary: No wounds, no lesions. No rash or pruritus. No unusual bruising. No change in hair or nails. Neurologic: No aphasia. No facial droop. No change in mentation. No head injury. No headache. No paralysis. No paresthesia. Psychiatric: No depression. No anxiety. No mood swings. Endocrine: No abnormal blood sugars. No weight change. No excessive sweating or thirst. No cold intolerance. Objective - Vital Signs Vital signs: Vital Signs Temp 97.6 F 01/28/19 05:00 Pulse 103 H 01/28/19 05:00 Resp 16 01/28/19 05:00 BP 131/62 01/28/19 05:00 Pulse Ox 97 01/28/19 05:00 Intake & Output 01/27/19 01/28/19 01/28/19 18:59 06:59 18:59 Intake Total 1510 1100 Balance 1510 1100 Intake: Intake, IV Titration 400 Amount Sodium Chloride 0.9% 1, 400 000 ml @ 100 mls/hr IV . Q10H ABDOUL Rx#:[id number] Oral 1510 700 Other: Voiding Method Bedside Commode Bedside Commode # Voids 3 1 - Exam - Constitutional General appearance: Present: cooperative, no acute distress, obese, resting in bed - EENT Eyes: Present: anicteric sclerae, edentulous, PERRLA, dentition normal, normal appearance ENT: Present: NA/AT, normal oropharynx - Neck Neck: Present: normal ROM - Respiratory Respiratory: bilateral: CTA, negative: diminished, dullness, rales, wheezing - Cardiovascular Rhythm: regular Heart sounds: normal: S1, S2 Abnormal Heart Sounds: Absent: systolic murmur, diastolic murmur, rub, S3 Gallop, S4 Gallop, click, other - Gastrointestinal General gastrointestinal: Present: normal bowel sounds, soft - Integumentary Integumentary: Present: decreased turgor, normal - Neurologic Neurologic: Present: CNII-XII intact - Musculoskeletal Musculoskeletal: Present: gait normal, strength equal bilaterally - Psychiatric Psychiatric: Present: A&O x's 3, appropriate affect, intact judgment & insight - Labs CBC & Chem 7: 01/26/19 07:09 01/28/19 07:53 Labs: Abnormal Lab Results - Last 24 Hours (Table) 01/27/19 01/27/19 01/27/19 Range/Units 11:18 17:28 20:07 Sodium (137-145) mmol/L Chloride (98-107) mmol/L BUN (7-17) mg/dL Creatinine (0.52-1.04) mg/dL POC Glucose (mg/dL) 148 H 159 H 148 H (75-99) mg/dL Calcium (8.4-10.2) mg/dL Magnesium (1.6-2.3) mg/dL 01/28/19 01/28/19 Range/Units 07:08 07:53 Sodium 136 L (137-145) mmol/L Chloride 108 H (98-107) mmol/L BUN 20 H (7-17) mg/dL Creatinine 1.44 H (0.52-1.04) mg/dL POC Glucose (mg/dL) 114 H (75-99) mg/dL Calcium 12.8 H (8.4-10.2) mg/dL Magnesium 1.4 L (1.6-2.3) mg/dL Microbiology - Last 24 Hours (Table) 01/26/19 08:00 Urine Culture - Final Urine,Clean Catch Assessment and Plan Plan: 1. Acute kidney injury and hypercalcemia secondary to dehydration, chronic kidney disease stage III. Nephrology consult appreciated. Immunofixation electrophoresis, jay jay pending. Continue IV fluids and 100 mL per hour. Ruled out for primary hyperparathyroidism again secondary hyperparathyroidism, has normal PTH levels. IV hydration,at the 100 mL an hour, vitamin D supplementation has been discontinued 2. Diabetes mellitus type 2,surveillance as outpatientfor hemoglobin A1c, patient is onActos, Accu-Cheks and NovoLog scale, currently Levemir 8 units from usual dose of 70 units, appetite is still suppressed no pre-meal insulin required at this time 3. Hypertension, on metoprolol 50 mg twice a day 4.Cervical disc dse with spinal stenosis mod c3c4 based by x-rayson gabapentin 300 mg twice a day, on Cymbalta, and Tylenol. Patient is not on NSAIDs 5.Current tobacco use on nicotine patches 6.Hypothyroidism, on levothyroxine no changes made to 75 g daily 7.DVT prophylaxis using Lovenox 8.GI prophylaxis with Pepcid 9. Atrial fibrillation, controlled rate. Consult with cardiology. Discharge plan: home [facility] Impression and plan of care have been directed as dictated by the signing physician. Namrata Comer nurse practitioner acting as scribe for signing jessica gill.
--- NOTE | 2019-01-28 14:23 | P.CRDCN ---
History of Present Illness History of present illness: This is a pleasant 73-year-old female past medical history significant for coronary artery disease status post stent placement to the RCA with in-stent restenosis and restenting in 2014 with 50-60% disease to the mid LAD, peripheral arterial disease status post bilateral SFA stenting, dyslipidemia, hypertension, hypothyroidism and chronic nicotine dependence. She follows in the office with Dr. Mello. We've been asked to see her in consultation secondary to atrial fibrillation. She presented to the hospital 3 days ago with symptoms of increased weakness. She states at home she was feeling severe weakness in both of her legs and fell and was unable to get up. EMS was called for assistance. EKG on arrival reveals atrial fibrillation with mildly rapid ventricular respo nse with a heart rate of 109. She has been started on oral anticoagulation per primary care in the form of Eliquis 5 mg twice a day and her metoprolol has been increased from 25 twice a day to 50 mg 3 times a day. She is seen and examined resting comfortably laying flat in bed in no acute distress. She denies symptoms of chest discomfort, palpitations, shortness of breath, dizziness, nausea or diaphoresis. She states from time to time she does feel her heart "skipping a beat" but has never been diagnosed with an arrhythmia in the past. Laboratory data reviewed, sodium 136, potassium 4.7, creatinine 1.44, magnesium 1.4, WBC 6.6, hemoglobin 13.5, platelets 201, sodium 134, potassium 5, calcium on admission 13.5. Chest x-ray obtained on admission is negative for an acute cardiopulmonary process. Most recent echocardiogram reveals preserved left ventricular systolic function with ejection fraction 50-55%. Septal basal hypokinesia, mild MR, mild TR and mild aortic valve sclerosis without stenosis. Most recent stress test performed in the office November 2017 with a Lexiscan stress test negative for reversible cardiac ischemia. At the time of my exam: CONSTITUTIONAL: Denies fever. Denies chills. EYES: Denies blurred vision. Denies vision changes. Denies eye pain. EARS, NOSE, MOUTH & THROAT: Denies headache. Denies sore throat. Denies ear pain. CARDIOVASCULAR: Denies chest pain. Denies shortness of breath. Denies orthopnea. Denies PND. Denies palpitations. RESPIRATORY: Denies cough. GASTROINTESTINAL: Denies abdominal pain. Denies diarrhea. Denies constipation. Denies nausea. Denies vomiting. MUSCULOSKELETAL: Denies myalgias. INTEGUMENTARY: Denies pruitis. Denies rash. NEUROLOGIC: Denies numbness. Denies tingling. Denies weakness. PSYCHIATRIC: Denies anxiety. Denies depression. ENDOCRINE: Denies fatigue. Denies weight change. Denies polydipsia. Denies polyurina. GENITOURINARY: Denies burning, hematuria or urgency with micturation. HEMATOLOGIC: Denies history of anemia. Denies bleeding. Blood pressure 120/84 heart rate 87 afebrile maintaining oxygen saturation on room air GENERAL: This is a 73-year-old female in no apparent distress at the time of my examination. HEENT: Head is atraumatic, normocephalic. Pupils are equal, round. Sclerae anicteric. Conjunctivae are clear. Mucous membranes of the mouth are moist. Neck is supple. There is no jugular venous distention. No carotid bruit is heard. LUNGS: Clear to auscultation no wheezes, rales or rhonchi. No chest wall tenderness is noted on palpation or with deep breathing. HEART: Irregular rate and rhythm without murmurs, rubs or gallops. S1 and S2 heard. ABDOMEN: Soft, nontender. Bowel sounds are heard. No organomegaly noted. EXTREMITIES: No evidence of peripheral edema and no calf tenderness noted. VASCULAR: Radial and dorsalis pedis pulses palpated, no evidence of clubbing. NEUROLOGIC: Patient is awake, alert and oriented x3. ASSESSMENT New onset paroxysmal atrial fibrillation Hypomagnesemia Hypercalcemia Acute kidney injury Diabetes mellitus History of coronary artery disease Peripheral arterial disease status post bilateral SFA stenting Hypertension Dyslipidemia Hypothyroidism Chronic nicotine dependence PLAN Check TSH level. Replace magnesium per protocol. Obtain 2D echocardiogram and doppler study to assess cardiac structure and function. We will ask Case Management to check the cost of Eliquis. Further recommendations to follow based on clinical course. Thank you kindly for this consultation. Nurse Practitioner note has been reviewed, I agree with a documented findings and plan of care. Patient was seen and examined. Past Medical History Past Medical History: Atrial Fibrillation, Diabetes Mellitus, Deep Vein T hrombosis (DVT), Fibromyalgia, Hyperlipidemia, Hypertension, Myocardial Infarction ([place]), Thyroid Disorder, Vascular Disorder Additional Past Medical History / Comment(s): PAD, PSORIATIC ARTHRITIS. LEFT KIDNEY STONE. Last Myocardial Infarction Date:: 08/16/2014 History of Any Multi-Drug Resistant Organisms: None Reported Past Surgical History: Section, Heart Catheterization, Heart Cathete rization With Stent Additional Past Surgical History / Comment(s): LEFT SUPERFICIAL FEMORAL ARTERY STENT.COLONOSCOPY, BILATERAL BREAST BIOPSY.NEPHROLITHOTOMY, LITHOTRIPSY, 08/05 cardiac stent, Arthrectomy Past Anesthesia/Blood Transfusion Reactions: No Reported Reaction Date of Last Stent Placement:: 2013 Past Psychological History: Depression Smoking Status: Current some day smoker Past Alcohol Use History: None Reported Additional Past Alcohol Use History / Comment(s): taking a puff here and there. Past Drug Use History: None Reported - Past Family History Mother Family Medical History: Myocardial Infarction ([place]) Additional Family Medical History / Comment(s): MOTHER OF A HEART ATTACK AT AGE OF 63 Sister(s) Family Medical History: Cancer Additional Family Medical History / Comment(s): SISTER HAD OVARIAN CANCER Brother(s) Family Medical History: Cancer Additional Family Medical History / Comment(s): BONE CANCER,prostate,brain,cabg Son(s) Family Medical History: No Reported History Daughter(s) Family Medical History: No Reported History Medications and Allergies Home Medications Medication Instructions Recorded Confirmed Type Clopidogrel [Plavix] 75 mg PO DAILY 02/24/14 11/08/18 History DULoxetine HCL [Cymbalta] 60 mg PO HS 02/24/14 11/08/18 History Fish Oil/Dha/Epa [Fish Oil 1,200 1,000 mg PO DAILY 02/24/14 11/08/18 History mg Fish Oil] Folic Acid 1 mg PO DAILY 02/24/14 01/25/19 History Gabapentin [Neurontin] 300 mg PO BID 02/24/14 11/08/18 History INSULIN LISPRO (humaLOG) [humaLOG] 20 unit SQ AC-BRKFST PRN 02/24/14 11/08/18 History INSULIN LISPRO (humaLOG) [humaLOG] 25 unit SQ AC-LUNCH PRN 02/24/14 11/08/18 History INSULIN LISPRO (humaLOG) [humaLOG] 25 unit SQ AC-SUPPER PRN 02/24/14 11/08/18 History Insulin Detemir [Levemir Flexpen] 70 units SQ QAM 02/24/14 11/08/18 History Levothyroxine Sodium [Synthroid] 75 mcg PO QAM 02/24/14 11/08/18 History Nitroglycerin Sl Tabs [Nitrostat] 0.4 mg SUBLINGUAL DIRECTED PRN 02/24/14 11/08/18 History Ascorbic Acid [Vitamin C] 500 mg PO DAILY 08/16/14 11/08/18 History Atorvastatin [Lipitor] 80 mg PO HS #30 tab 08/18/14 11/08/18 Rx Metoprolol Tartrate [Lopressor] 25 mg PO BID #60 tab 08/18/14 01/25/19 Rx Cyanocobalamin (Vitamin B-12) 1,000 mcg PO DAILY 11/11/14 11/08/18 History [B-12] Fluticasone Propionate [Flonase] 1 spr EA NOSTRIL DAILY PRN 11/11/14 11/08/18 History Magnesium Oxide [Mag-Ox] 400 mg PO DAILY 11/11/14 01/25/19 History inFLIXimab [Remicade] 400 mg IM DIRECTED 11/11/14 11/08/18 History Cholecalciferol [Vitamin D3] 2,000 unit PO DAILY 12/10/14 01/25/19 History Triamcinolone 0.1% Cream [Kenalog 1 applic TOPICAL DAILY PRN 01/05/16 11/08/18 H istory 0.1% Cream] Aspirin 81 mg PO DAILY 08/24/17 01/25/19 History Enalapril [Vasotec] 2.5 mg PO DAILY 01/25/19 01/25/19 History Pioglitazone [Actos] 15 mg PO DAILY 01/25/19 01/25/19 History Allergies Allergy/AdvReac Type Severity Reaction Status Date / Time adhesive Allergy Itching Verified 01/25/19 15:33 Penicillins Allergy Swelling,hi Verified 01/25/19 15:33 ves Physical Exam Vitals: Vital Signs Temp Pulse Pulse Pulse Resp BP BP 01/28/19 11:47 97.8 F 87 18 120/80 128/84 01/28/19 05:00 97.6 F 103 H 16 131/62 01/27/19 21:00 98.0 F 115 H 16 128/93 130/60 01/27/19 14:50 79 95 95 16 BP Pulse Ox 01/28/19 11:47 116/75 96 01/28/19 05:00 97 01/27/19 21:00 123/65 98 01/27/19 14:50 Intake and Output 01/27/19 01/28/19 01/28/19 22:59 06:59 14:59 Intake Total 350 750 Balance 350 750 Intake: Intake, IV Titration 400 Amount Sodium Chloride 0.9% 1, 400 000 ml @ 100 mls/hr IV . Q10H [facility] Rx#:[id number] Oral 350 350 Other: Voiding Method Bedside Commode # Voids 2 1 Results 01/26/19 07:09 01/28/19 07:53 Comprehensive Metabolic Panel 01/28/19 Range/Units 07:53 Sodium 136 L (137-145) mmol/L Potassium 4.7 (3.5-5.1) mmol/L Chloride 108 H (98-107) mmol/L Carbon Dioxide 24 (22-30) mmol/L BUN 20 H (7-17) mg/dL Creatinine 1.44 H (0.52-1.04) mg/dL Glucose 99 (74-99) mg/dL Calcium 12.8 H (8.4-10.2) mg/dL Current Medications Generic Name Dose Route Start Last Admin Trade Name Freq PRN Reason Stop Dose Admin Acetaminophen 650 mg 01/26/19 01:18 Tylenol Tab PO Q6HR PRN Fever and/ or Pain Apixaban 5 mg 01/28/19 21:00 Eliquis PO BID [facility] Aspirin 81 mg 01/27/19 09:00 01/28/19 10:02 Aspirin PO 81 mg DAILY [facility] Administration Atorvastatin Calcium 80 mg 01/26/19 21:00 01/27/19 22:08 Lipitor PO 80 mg HS [facility] Administration Duloxetine HCl 60 mg 01/26/19 21:00 01/27/19 22:08 Cymbalta PO 60 mg HS [facility] Administration Gabapentin 300 mg 01/26/19 21:00 01/28/19 10:02 Neurontin PO 300 mg BID [facility] Administration Levofloxacin/Dextrose 250 mg/ 50 mls @ 50 mls/hr 01/26/19 02:00 01/28/19 03:36 IV Solution IVPB 50 mls/hr Q24H [facility] Administration Sodium Chloride 1,000 mls @ 100 mls/hr 01/26/19 01:30 01/28/19 10:02 Saline 0.9% IV 100 mls/hr .Q10H [facility] Administration Insulin Aspart 0 unit 01/27/19 07:30 01/28/19 11:52 Novolog SQ 1 unit ACHS [facility] Administration Protocol Insulin Detemir 8 unit 01/26/19 21:00 01/27/19 22:09 Levemir SQ 8 unit HS [facility] Administration Levothyroxine Sodium 75 mcg 01/27/19 06:30 01/28/19 06:26 Synthroid PO 75 mcg DAILY@0630 [facility] Administration Magnesium Oxide 400 mg 01/27/19 09:00 01/28/19 10:02 Mag-Ox PO 400 mg DAILY [facility] Administration Metoprolol Tartrate 50 mg 01/28/19 16:00 Lopressor PO TID [facility] Naloxone HCl 0.2 mg 01/25/19 15:44 Narcan IV Q2M PRN Opioid Reversal Nicotine 1 patch 01/26/19 09:00 01/28/19 10:01 Habitrol 21mg/24hr Patch TRANSDERM 1 patch DAILY [facility] Administration Nitroglycerin 0.4 mg 01/26/19 12:38 Nitrostat SUBLINGUAL DIRECTED PRN Chest Pain Pioglitazone HCl 15 mg 01/26/19 12:38 01/28/19 10:03 Actos PO 15 mg DAILY [facility] Administration Senna/Docusate Sodium 2 each 01/28/19 11:15 01/28/19 11:52 Senokot-S PO 2 each DAILY [facility] Administration Intake and Output 01/27/19 01/28/19 01/28/19 22:59 06:59 14:59 Intake Total 350 750 Balance 350 750 Intake: Intake, IV Titration 400 Amount Sodium Chloride 0.9% 1, 400 000 ml @ 100 mls/hr IV . Q10H [facility] Rx#:[id number] Oral 350 350 Other: Voiding Method Bedside Commode # Voids 2 1 01/26/19 07:09 01/28/19 07:53
[2019-01-28 16:52] LABS: Glucose,Whole Blood 189 mg/dL (75-99)
[2019-01-28 20:01] LABS: Glucose,Whole Blood 202 mg/dL (75-99)
[2019-01-28] MEDS: APIXABAN 5 MG TAB PO SCH (22:43)
[2019-01-28] MEDS: DULoxetine HCL 60 MG CAPSULE.DR PO SCH (22:43)
[2019-01-28] MEDS: INSULIN DETEMIR (LEVEMIR) 100 UNIT/ML SYR SQ SCH (22:43)
[2019-01-28] MEDS: ATORVASTATIN 80 MG TAB PO SCH (22:43)
[2019-01-29] MEDS: LEVOFLOXACIN 250MG-D5W PMX 250 MG in DEXTROSE/WATER 1 50ML.BAG IVPB SCH (03:21)
[2019-01-29 07:05] LABS: Glucose,Whole Blood 127 mg/dL (75-99)
[2019-01-29] MEDS: PIOGLITAZONE 15 MG TAB PO SCH (09:14)
[2019-01-29] MEDS: SENNOSIDES-DOCUSATE SODIUM 1 EACH TAB PO SCH (09:14)
[2019-01-29] MEDS: ASPIRIN 81 MG PO SCH (09:15)
[2019-01-29] MEDS: METOPROLOL TARTRATE 50 MG TAB PO SCH ×3 (09:15→22:28)
[2019-01-29] MEDS: APIXABAN 5 MG TAB PO SCH ×2 (09:15→22:28)
[2019-01-29] MEDS: INSULIN ASPART (NovoLOG) 100 UNIT/ML VIAL SQ SCH ×4 (09:15→22:29)
[2019-01-29] MEDS: MAGNESIUM OXIDE 400 MG TAB PO SCH (09:15)
[2019-01-29] MEDS: GABAPENTIN 300 MG CAP PO SCH ×2 (09:15→22:28)
[2019-01-29] MEDS: LEVOTHYROXINE 75 MCG TAB PO SCH (09:15)
[2019-01-29] MEDS: NICOTINE 21MG/24HR PATCH TRANSDERM SCH (09:19)
[2019-01-29] MEDS: SODIUM CHLORIDE 0.9% 1,000 ML IV SCH ×2 (09:20→22:28)
[2019-01-29 09:56] LABS: Albumin 2.96 g/dL (3.80-4.90); Gamma Globulin 1.09 g/dL (0.70-1.50)
[2019-01-29 10:42] LABS: Angiotensin-1 Converting Enz. 53 U/L (8-52)
[2019-01-29 11:09] LABS: Glucose,Whole Blood 189 mg/dL (75-99)
[2019-01-29 12:00] LABS: Calcium 12.9 mg/dL (8.4-10.2)
[2019-01-29 12:13] LABS: Potassium 5.2 mmol/L (3.5-5.1)
--- NOTE | 2019-01-29 15:06 | P.PN ---
Subjective Progress Note Date: 01/29/19 this is a pleasant 73-year-old female patient of Dr. Grijalva. She has underlying history off CAD with prior cardiac stents, diabetes mellitus type 2, hypothyroidism, psoriasis, CK D stage III, fibromyalgia, admitted to the hospital secondary to acute dehydration presenting with diminished appetite, generalized muscle aches, vomiting, intermittent along with 2 episodes of diarrhea prior to admission.she denies any melena hematochezia, hemoptysis, patient denies any recent NSAID use, no new medication changes from her PCP.patient denies any chest pain no palpitations headache no lightheadedness syncope or falls. In emergency room, she presented with creatinine of 1.77, previous baseline of 1.4, calcium was elevated at 13.5, liver function tests normal,urinalyses is unremarkable except for hyaline cast, WBC 4, IBC 2, specific gravity of 1.010 trace proteinuriaEKG shows atrial fibrillation with rapid ventricular rate heart rate of 107patient was admitted secondary to the hyperkalemia, in no acute kidney injury, no CPKwas done on admission, troponin is normal at 0.012, glucose of 102. CAT scan of the brain chest x-rays were reviewed , brain CT shows mild chronic-appearing white matter ischemic changecervical spine shows no acute rashes abnormality, including the stasis, there is a c3 C4 moderate left foraminal stenosis, chest x-ray no acute pulmonary process no osseus abnormality Patient was admitted with renal consultation, 01/27: Patient is currently hydrated however she still has minimal appetite, still requiring 8 units of Levemir, instead of usual 70 units at home, patient has no muscle aches on nausea and abdominal pain, still weak, laboratories shows improvement of hypercalcemia with the current level of 12.8 PTH is normal, pending vitamin D levels and serum protein electrophoresis 01/28: Patient states that she ate 100% of her breakfast and lunch today. Patient is noted to be in atrial fibrillation on EKG and cardiology consult added. She complains of her bilateral legs aching. Lab work this morning reveals BUN of 20 and creatinine 1.44, calcium 12.8 and magnesium 1.4. Patient has been seen by nephrology for acute kidney injury with hypercalcemia and volume depletion. Urine and serum immunofixation are pending as well as Jay Jay level. Patient to avoid any calcium supplements. Patient is continued on IV fluids 100 mL per hour. 4/9: Patient was seen by cardiology yesterday for new onset atrial fibrillation and patient has been started on eliquis 5 mg twice daily and Lopressor has been increased to 50 mg 3 times daily. Echocardiogram has been obtained but report is pending. Repeat lab work reveals sodium 135, potassium 5.2, chloride 107, CO2 23, BUN 21 creatinine 1.37. Blood sugars been running between 127 and 202. Calcium remains high at 12.9. No monoclonal paraprotein recognized. Angiotensin-converting enzyme was high at 53 and cut off is 52. Vitamin D 25.2. Parathyroid hormone intact is 20.2. TSH 1.840. Review Of Systems: Constitutional: No fever, no chills, no night sweats. No weight change. Reports fatigue and lethargy. No daytime sleepiness. EENT: Reports decreased hearing, tinnitus No headache. No blurred vision or double vision, no loss of vision. No loss of Hearing, no ringing in the ears, no dizziness. No nasal drainage or congestion. No epistaxis. No sore throat. Lungs: No shortness of breath, cough, no sputum production. No wheezing. Cardiovascular: No chest pain, no lower extremity edema. No palpitations. No paroxysmal nocturnal dyspnea. No orthopnea. No lightheadedness or dizziness. No syncopal episodes. Abdominal: No abdominal pain. Reports nausea and vomiting. Reports diarrhea. No constipation. No bloody or tarry stools. Denies anorexia. Genitourinary: No dysuria, increased frequency, urgency. No urinary retention. Musculoskeletal: No myalgias. No muscle weakness, no gait dysfunction, no frequent falls. No back pain. No neck pain. Integumentary: No wounds, no lesions. No rash or pruritus. No unusual bruising. No change in hair or nails. Neurologic: No aphasia. No facial droop. No change in mentation. No head injury. No headache. No paralysis. No paresthesia. Psychiatric: No depression. No anxiety. No mood swings. Endocrine: No abnormal blood sugars. No weight change. No excessive sweating or thirst. No cold intolerance. Objective - Vital Signs Vital signs: Vital Signs Temp 97.7 F 01/29/19 05:00 Pulse 76 01/29/19 05:00 Resp 16 01/29/19 05:00 BP 137/81 01/29/19 05:00 Pulse Ox 98 01/29/19 05:00 Intake & Output 01/28/19 01/29/19 01/29/19 18:59 06:59 18:59 Intake Total 800 1840 Balance 800 1840 Intake: Intake, IV Titration 800 950 Amount Levofloxacin 250Mg-D5w 50 Pmx 250 mg In Dextrose/ Water 1 50ml.bag @ 50 mls /hr IVPB Q24H [facility] Rx#: [id number] Sodium Chloride 0.9% 1, 800 900 000 ml @ 100 mls/hr IV . Q10H [facility] Rx#:[id number] Oral 890 Other: Voiding Method Toilet Bedside Commode # Voids 3 1 # Bowel Movements 1 - Exam - Constitutional General appearance: Present: cooperative, no acute distress, obese - EENT Eyes: Present: anicteric sclerae, edentulous, PERRLA, dentition normal, normal appearance ENT: Present: NA/AT, normal oropharynx - Neck Neck: Present: normal ROM - Respiratory Respiratory: bilateral: CTA, negative: diminished, dullness, rales, wheezing - Cardiovascular Rhythm: regular Heart sounds: normal: S1, S2 Abnormal Heart Sounds: Absent: systolic murmur, diastolic murmur, rub, S3 Gallop, S4 Gallop, click, other - Gastrointestinal General gastrointestinal: Present: normal bowel sounds, soft - Integumentary Integumentary: Present: decreased turgor, normal - Neurologic Neurologic: Present: CNII-XII intact - Musculoskeletal Musculoskeletal: Present: gait normal, strength equal bilaterally - Psychiatric Psychiatric: Present: A&O x's 3, appropriate affect, intact judgment & insight - Labs CBC & Chem 7: 01/26/19 07:09 01/29/19 10:41 Labs: Abnormal Lab Results - Last 24 Hours (Table) 01/27/19 01/28/19 01/28/19 Range/Units 07:26 11:18 16:50 POC Glucose (mg/dL) 137 H 189 H (75-99) mg/dL Total Protein (PEP) 6.0 L (6.2-8.2) g/dL Vitamin D 25-Hydroxy 25.2 L (30.0-100.0) ng/mL 01/28/19 01/29/19 Range/Units 20:00 07:03 POC Glucose (mg/dL) 202 H 127 H (75-99) mg/dL Total Protein (PEP) (6.2-8.2) g/dL Vitamin D 25-Hydroxy (30.0-100.0) ng/mL Assessment and Plan Plan: 1. Acute kidney injury and hypercalcemia secondary to dehydration, chronic kidney disease stage III. Nephrology consult appreciated. Immunofixation electrophoresis, jay jay pending. Continue IV fluids and 100 mL per hour. 2. Diabetes mellitus type 2,surveillance as outpatientfor hemoglobin A1c, patient is onActos, Accu-Cheks and NovoLog scale, currently Levemir 8 units from usual dose of 70 units, appetite is still suppressed no pre-meal insulin required at this time 3. Hypertension, on metoprolol 50 mg 3 times daily 4. Cervical disc dse with spinal stenosis mod c3c4 based by x-rayson gabapentin 300 mg twice a day, on Cymbalta, and Tylenol. Patient is not on NSAIDs 5. Current tobacco use on nicotine patches 6. Hypothyroidism, on levothyroxine no changes made to 75 g daily 7. DVT prophylaxis using Lovenox 8. GI prophylaxis with Pepcid 9. Paroxysmal Atrial fibrillation, controlled rate. Consult with cardiology. Eliquis 5 mg twice daily and metoprolol increased to 50 mg 3 times daily. Discharge plan: home [facility] tomorrow Impression and plan of care have been directed as dictated by the signing physician. Namrata Comer nurse practitioner acting as scribe for signing physician.
[2019-01-29 16:27] LABS: Vitamin D, 1, 25-Dihydroxy 99 pg/mL (20 - 79)
[2019-01-29 17:20] LABS: Glucose,Whole Blood 162 mg/dL (75-99)
[2019-01-29 21:23] LABS: Glucose,Whole Blood 162 mg/dL (75-99)
[2019-01-29] MEDS ORDERED: predniSONE 20 MG TAB PO STA (21:26)
[2019-01-29] MEDS: ATORVASTATIN 80 MG TAB PO SCH (22:28)
[2019-01-29] MEDS: LEVOFLOXACIN 250 MG TAB PO SCH (22:28)
[2019-01-29] MEDS: INSULIN DETEMIR (LEVEMIR) 100 UNIT/ML SYR SQ SCH (22:29)
[2019-01-29] MEDS: DULoxetine HCL 60 MG CAPSULE.DR PO SCH (22:44)
--- NOTE | 2019-01-29 22:53 | PN ---
PROGRESS NOTE HISTORY: The patient is seen for followup for acute kidney injury and hypercalcemia. During the workup, patient is noted to have elevated 125 hydroxy vitamin D level, which is highly suspicious for sarcoidosis. Jay Jay level was also borderline elevated at 53, although the upper limit of normal is 52. Overall, patient states she feels okay. PHYSICAL EXAMINATION: This morning, blood pressure was 130/53, heart rate 73 per minute, patient is afebrile. Examination of the heart S1, S2. Examination of the lungs, decreased breath sounds at bases. Abdomen is soft, obese, nontender. Examination lower extremities shows edema 1+ bilaterally. [employer] exam is grossly intact. LABS: Sodium 135, potassium 5.2, BUN 21, serum creatinine 1.37, calcium 12.9. ASSESSMENT: 1. Acute kidney injury secondary to hypercalcemia, currently improving. 2. Hypercalcemia, most likely secondary to underlying sarcoidosis with elevated 125 hydroxy vitamin D level. The Jay Jay level is borderline high. I would strongly suggest starting prednisone and down the road once the calcium is improved we can switch to Plaquenil. Consider CT of the chest. Chest x-ray on admission was normal. 3. Mild volume overload. I will decrease the IV fluids to 50 mL an hour and likely discontinue the fluids completely tomorrow. 4. Type 2 diabetes. Blood sugar was running low, currently improved. 5. New onset atrial fibrillation, being followed by Cardiology. 2D echo has been ordered. PLAN: Decrease IV fluids. Start prednisone. Consider CT chest. MMODL / IJN: [id number] /
--- NOTE | 2019-01-29 22:57 | CT ---
EXAMINATION TYPE: CT chest wo con DATE OF EXAM: 01/29/2019 COMPARISON: Chest x-ray January 25, 2019 HISTORY: Sarcoidosis CT DLP: 849.5 mGycm. Automated Exposure Control for Dose Reduction was Utilized. TECHNIQUE: CT scan of the thorax is performed without IV contrast. High resolution protocol with 1 m m sequences and 10 mm intervals in supine and prone technique FINDINGS: LUNGS: There is mild scattered linear parenchymal fibrosis. There are tiny bilateral pleural effusion s. There is felt mild interstitial edema. No suspicious peripheral reticulation or fibrosis is eviden t. No honeycombing is seen. No bronchiectasis is present. No worrisome acute consolidation is seen. N o suspicious masses are noted. MEDIASTINUM: Lack of IV contrast and technique are both noted to limit evaluation for mediastinal and especially hilar adenopathy. There may be enlarged right pericarinal lymph node maximum is 10 series 11. No significant pericardial effusion is seen. Mild cardiomegaly is redemonstrated. Coronary art chato calcification is seen which is noted marker for underlying coronary disease. Main pulmonary arter y measures 2.9 cm in diameter axial image 12 series 7. OTHER: There is multilevel spurring in the thoracic spine. IMPRESSION: Mild chronic parenchymal changes, no acute pulmonary process. Suboptimal evaluation for l ymph nodes due to technique.
[2019-01-30] MEDS: LEVOTHYROXINE 75 MCG TAB PO SCH (05:11)
[2019-01-30] MEDS: SODIUM CHLORIDE 0.9% 1,000 ML IV SCH ×2 (05:11→10:36)
[2019-01-30 06:51] LABS: Glucose,Whole Blood 209 mg/dL (75-99)
[2019-01-30] MEDS: PIOGLITAZONE 15 MG TAB PO SCH (08:03)
[2019-01-30] MEDS: NICOTINE 21MG/24HR PATCH TRANSDERM SCH (08:03)
[2019-01-30] MEDS: APIXABAN 5 MG TAB PO SCH ×2 (08:03→21:10)
[2019-01-30] MEDS: METOPROLOL TARTRATE 50 MG TAB PO SCH ×3 (08:03→21:09)
[2019-01-30] MEDS: GABAPENTIN 300 MG CAP PO SCH ×2 (08:03→21:09)
[2019-01-30] MEDS: predniSONE 20 MG TAB PO SCH (08:04)
[2019-01-30] MEDS: INSULIN ASPART (NovoLOG) 100 UNIT/ML VIAL SQ SCH ×5 (08:04→21:10)
[2019-01-30] MEDS: ASPIRIN 81 MG PO SCH (08:04)
[2019-01-30] MEDS: MAGNESIUM OXIDE 400 MG TAB PO SCH (08:04)
[2019-01-30] MEDS: SENNOSIDES-DOCUSATE SODIUM 1 EACH TAB PO SCH (08:04)
[2019-01-30 09:48] LABS: Calcium 12.7 mg/dL (8.4-10.2); Potassium 4.9 mmol/L (3.5-5.1)
[2019-01-30 11:12] LABS: Glucose,Whole Blood 323 mg/dL (75-99)
[2019-01-30] MEDS ORDERED: INSULIN ASPART (NovoLOG) 100 UNIT/ML VIAL SQ ONE (11:19)
--- NOTE | 2019-01-30 14:51 | P.PN ---
Subjective Progress Note Date: 01/30/19 this is a pleasant 73-year-old female patient of Dr. Grijalva. She has underlying history off CAD with prior cardiac stents, diabetes mellitus type 2, hypothyroidism, psoriasis, CK D stage III, fibromyalgia, admitted to the hospital secondary to acute dehydration presenting with diminished appetite, generalized muscle aches, vomiting, intermittent along with 2 episodes of diarrhea prior to admission.she denies any melena hematochezia, hemoptysis, patient denies any recent NSAID use, no new medication changes from her PCP.patient denies any chest pain no palpitations headache no lightheadedness syncope or falls. In emergency room, she presented with creatinine of 1.77, previous baseline of 1.4, calcium was elevated at 13.5, liver function tests normal,urinalyses is unremarkable except for hyaline cast, WBC 4, IBC 2, specific gravity of 1.010 trace proteinuriaEKG shows atrial fibrillation with rapid ventricular rate heart rate of 107patient was admitted secondary to the hyperkalemia, in no acute kidney injury, no CPKwas done on admission, troponin is normal at 0.012, glucose of 102. CAT scan of the brain chest x-rays were reviewed , brain CT shows mild chronic-appearing white matter ischemic changecervical spine shows no acute rashes abnormality, including the stasis, there is a c3 C4 moderate left foraminal stenosis, chest x-ray no acute pulmonary process no osseus abnormality Patient was admitted with renal consultation, 01/27: Patient is currently hydrated however she still has minimal appetite, still requiring 8 units of Levemir, instead of usual 70 units at home, patient has no muscle aches on nausea and abdominal pain, still weak, laboratories shows improvement of hypercalcemia with the current level of 12.8 PTH is normal, pending vitamin D levels and serum protein electrophoresis 01/28: Patient states that she ate 100% of her breakfast and lunch today. Patient is noted to be in atrial fibrillation on EKG and cardiology consult added. She complains of her bilateral legs aching. Lab work this morning reveals BUN of 20 and creatinine 1.44, calcium 12.8 and magnesium 1.4. Patient has been seen by nephrology for acute kidney injury with hypercalcemia and volume depletion. Urine and serum immunofixation are pending as well as [place] level. Patient to avoid any calcium supplements. Patient is continued on IV fluids 100 mL per hour. 4/9: Patient was seen by cardiology yesterday for new onset atrial fibrillation and patient has been started on eliquis 5 mg twice daily and Lopressor has been increased to 50 mg 3 times daily. Echocardiogram has been obtained but report is pending. Repeat lab work reveals sodium 135, potassium 5.2, chloride 107, CO2 23, BUN 21 creatinine 1.37. Blood sugars been running between 127 and 202. Calcium remains high at 12.9. No monoclonal paraprotein recognized. Angiotensin-converting enzyme was high at 53 and cut off is 52. Vitamin D 25.2. Parathyroid hormone intact is 20.2. TSH 1.840. 01/30: Patient has been afebrile, heart rate 95, blood pressure 119/63, pulse ox 99% on room air. CT of the chest reveals mild chronic parenchymal changes, no acute pulmonary process. Suboptimal evaluation for lymph nodes due to waqas hnique. Repeat lab work reveals sodium 133, potassium 4.9, chloride 105, CO2 23, BUN 25 and creatinine 1.61. ProBNP 8040. Patient is history that she had a skin biopsy done many years ago in [place] and was diagnosed with sarcoidosis. Dr. Anderson is following. She has added and prednisone 20 mg daily. Patient's blood sugars are rising for which Levemir will be increased to 30 units at bedtime. Echocardiogram report is currently pending. PT is recommending home with homecare or subacute rehab. Patient apparently lives with a woman that helps her out and her son is quite active in her care. Review Of Systems: Constitutional: No fever, no chills, no night sweats. No weight change. Re ports fatigue and lethargy. No daytime sleepiness. EENT: Reports decreased hearing, tinnitus No headache. No blurred vision or double vision, no loss of vision. No loss of Hearing, no ringing in the ears, no dizziness. No nasal drainage or congestion. No epistaxis. No sore throat. Lungs: No shortness of breath, cough, no sputum production. No wheezing. Cardiovascular: No chest pain, no lower extremity edema. No palpitations. No paroxysmal nocturnal dyspnea. No orthopnea. No lightheadedness or dizziness. No syncopal episodes. Abdominal: No abdominal pain. Reports nausea and vomiting. Reports diarrhea. No constipation. No bloody or tarry stools. Denies anorexia. Genitourinary: No dysuria, increased frequency, urgency. No urinary retention. Musculoskeletal: No myalgias. No muscle weakness, no gait dysfunction, no frequent falls. No back pain. No neck pain. Integumentary: No wounds, no lesions. No rash or pruritus. No unusual bruising. No change in hair or nails. Neurologic: No aphasia. No facial droop. No change in mentation. No head injury. No headache. No paralysis. No paresthesia. Psychiatric: No depression. No anxiety. No mood swings. Endocrine: Reports abnormal blood sugars. No weight change. No excessive sweating or thirst. No cold intolerance. Objective - Vital Signs Vital signs: Vital Signs Temp 97.9 F 01/30/19 05:00 Pulse 118 H 01/30/19 05:00 Resp 18 01/30/19 05:00 BP 144/66 01/30/19 05:00 Pulse Ox 94 L 01/30/19 05:00 Intake & Output 01/29/19 01/30/19 01/30/19 18:59 06:59 18:59 Intake Total 1400 1100 Balance 1400 1100 Intake: Intake, IV Titration 800 500 Amount Sodium Chloride 0.9% 1, 800 500 000 ml @ 100 mls/hr IV . Q10H [facility] Rx#:[id number] Oral 600 600 Other: Voiding Method Toilet Toilet Bedside Commode Bedside Commode Bedside Commode # Voids 1 - Exam - Constitutional General appearance: Present: cooperative, no acute distress, obese patient is resting in bed - EENT Eyes: Present: anicteric sclerae, edentulous, PERRLA, dentition normal, normal appearance ENT: Present: NA/AT, normal oropharynx - Neck Neck: Present: normal ROM - Respiratory Respiratory: bilateral: CTA, negative: diminished, dullness, rales, wheezing - Cardiovascular Rhythm: regular Heart sounds: normal: S1, S2 Abnormal Heart Sounds: Absent: systolic murmur, diastolic murmur, rub, S3 Gallop , S4 Gallop, click, other - Gastrointestinal General gastrointestinal: Present: normal bowel sounds, soft - Integumentary Integumentary: Present: decreased turgor, normal - Neurologic Neurologic: Present: CNII-XII intact - Musculoskeletal Musculoskeletal: Present: gait normal, strength equal bilaterally - Psychiatric Psychiatric: Present: A&O x's 3, appropriate affect, intact judgment & insight - Labs CBC & Chem 7: 01/26/19 07:09 01/30/19 08:52 Labs: Abnormal Lab Results - Last 24 Hours (Table) 01/27/19 01/29/19 01/29/19 Range/Units 07:19 10:41 17:18 Sodium 135 L (137-145) mmol/L Potassium 5.2 H (3.5-5.1) mmol/L BUN 21 H (7-17) mg/dL Creatinine 1.37 H (0.52-1.04) mg/dL Glucose 181 H (74-99) mg/dL POC Glucose (mg/dL) 162 H (75-99) mg/dL Calcium 12.9 H (8.4-10.2) mg/dL Vit D 1,25-Dihydroxy 99 H (20 - 79) pg/mL 01/29/19 01/30/19 01/30/19 Range/Units 21:20 06:49 08:52 Sodium 133 L (137-145) mmol/L Potassium (3.5-5.1) mmol/L BUN 25 H (7-17) mg/dL Creatinine 1.61 H (0.52-1.04) mg/dL Glucose 277 H (74-99) mg/dL POC Glucose (mg/dL) 162 H 209 H (75-99) mg/dL Calcium 12.7 H (8.4-10.2) mg/dL Vit D 1,25-Dihydroxy (20 - 79) pg/mL 01/30/19 Range/Units 11:11 Sodium (137-145) mmol/L Potassium (3.5-5.1) mmol/L BUN (7-17) mg/dL Creatinine (0.52-1.04) mg/dL Glucose (74-99) mg/dL POC Glucose (mg/dL) 323 H (75-99) mg/dL Calcium (8.4-10.2) mg/dL Vit D 1,25-Dihydroxy (20 - 79) pg/mL Assessment and Plan Plan: 1. Acute kidney injury and hypercalcemia secondary to dehydration, chronic kidney disease stage III. Nephrology consult appreciated. IV fluids currently at 50 mL per hour. 2. Diabetes mellitus type 2, uncontrolled with hyperglycemia. Insulin long- acting increased to 30 units at bedtime and continue insulin scale. 3. Hypertension, on metoprolol 50 mg 3 times daily 4. Cervical disc dse with spinal stenosis mod c3c4 based by x-rayson gabapentin 300 mg twice a day, on Cymbalta, and Tylenol. Patient is not on NSAIDs 5. Current tobacco use on nicotine patches 6. Hypothyroidism, on levothyroxine no changes made to 75 g daily 7. DVT prophylaxis using Lovenox 8. GI prophylaxis with Pepcid 9. Paroxysmal Atrial fibrillation, controlled rate. Consult with cardiology. Eliquis 5 mg twice daily and metoprolol increased to 50 mg 3 times daily. 10. Hypercalcemia secondary to sarcoidosis. Patient was feeling diagnosed many years ago in [place]. Prednisone 20 mg daily started by nephrology. Discharge plan: home [facility] Impression and plan of care have been directed as dictated by the signing physician. Namrata Comer nurse practitioner acting as scribe for signing physician.
[2019-01-30 16:42] LABS: Glucose,Whole Blood 325 mg/dL (75-99)
[2019-01-30] MEDS ORDERED: INSULIN DETEMIR (LEVEMIR) 100 UNIT/ML SYR SQ SCH ×2 (18:00→21:00)
[2019-01-30 20:26] LABS: Glucose,Whole Blood 285 mg/dL (75-99)
[2019-01-30] MEDS: DULoxetine HCL 60 MG CAPSULE.DR PO SCH (21:09)
[2019-01-30] MEDS: LEVOFLOXACIN 250 MG TAB PO SCH (21:10)
[2019-01-30] MEDS: ATORVASTATIN 80 MG TAB PO SCH (21:10)
--- NOTE | 2019-01-30 23:20 | PN ---
PROGRESS NOTE Patient is seen for followup for acute kidney injury, hypercalcemia. The patient's 125 hydroxy vitamin D was elevated suggestive of sarcoidosis. She has been started on prednisone. At this time, she denies any significant complaints. PHYSICAL EXAMINATION: This morning, when patient was seen, blood pressure was 144/66, heart rate of 90 per minute. Patient is afebrile. Examination of the heart S1, S2. Examination of lungs bilateral breath sounds are heard. Abdomen is soft, nontender. Examination of lower extremities shows edema 1+ bilaterally. [employer] exam is grossly intact. LABS: This morning showed sodium 133, serum creatinine 1.6, BUN 25, potassium 4.9, calcium was 12.7. ASSESSMENT: 1. Acute kidney injury associated with hypercalcemia. Serum creatinine had improved to 1.3 yesterday, today it is up to 1.6. The patient has not received any nephrotoxic agents. She is maintained on IV fluids. She has had good urine output and blood pressure has not been significantly low. Continue to avoid nephrotoxic agents. 2. Hypercalcemia associated with most likely underlying sarcoidosis. However, chest CT done without contrast did not knot picker cloth any significant lymphadenopathy. Continue with the prednisone for now and repeat labs in a.m. Patient could be discharged from nephrology standpoint on the prednisone with plans to follow up as outpatient. 3. Paroxysmal atrial fibrillation with controlled ventricular response maintained on Eliquis. PLAN: The patient can be discharged on prednisone with repeat labs to be done as outpatient with the need for outpatient followup for CKD and hypercalcemia. Consider switching to Plaquenil down the road once the hypercalcemia improves. MMODL / IJN: [id number] /
[2019-01-31 05:17] VITALS: RESP 16
[2019-01-31] MEDS: SODIUM CHLORIDE 0.9% 1,000 ML IV SCH (06:06)
[2019-01-31] MEDS: LEVOTHYROXINE 75 MCG TAB PO SCH (06:08)
[2019-01-31 07:02] LABS: Glucose,Whole Blood 113 mg/dL (75-99)
[2019-01-31] MEDS: INSULIN ASPART (NovoLOG) 100 UNIT/ML VIAL SQ SCH ×3 (07:02→17:46)
[2019-01-31 09:18] LABS: Basophils % (A) 0 %; Eosinophils # (A) 0.2 k/uL (0-0.7); Eosinophils % (A) 2 %; HCT 36.6 % (34.0-46.0); Lymphocytes # (A) 1.7 k/uL (1.0-4.8); Lymphocytes % (A) 18 %; MCH 32.2 pg (25.0-35.0); MCHC 32.8 g/dL (31.0-37.0); Mean Platelet Volume 8.2; Monocytes # (A) 0.8 k/uL (0-1.0); Monocytes % (A) 9 %; Neutrophils # (A) 6.3 k/uL (1.3-7.7); Neutrophils % (A) 69 %; Platelet Count 164 k/uL (150-450); RBC 3.74 m/uL (3.80-5.40); WBC 9.1 k/uL (3.8-10.6)
[2019-01-31 09:44] LABS: Potassium 4.7 mmol/L (3.5-5.1)
[2019-01-31] MEDS: PIOGLITAZONE 15 MG TAB PO SCH (09:44)
[2019-01-31] MEDS: NICOTINE 21MG/24HR PATCH TRANSDERM SCH (09:44)
[2019-01-31] MEDS: predniSONE 20 MG TAB PO SCH (09:44)
[2019-01-31] MEDS: SENNOSIDES-DOCUSATE SODIUM 1 EACH TAB PO SCH (09:44)
[2019-01-31] MEDS: ASPIRIN 81 MG PO SCH (09:45)
[2019-01-31] MEDS: APIXABAN 5 MG TAB PO SCH (09:45)
[2019-01-31] MEDS: GABAPENTIN 300 MG CAP PO SCH (09:45)
[2019-01-31] MEDS: MAGNESIUM OXIDE 400 MG TAB PO SCH (09:45)
[2019-01-31] MEDS: METOPROLOL TARTRATE 50 MG TAB PO SCH ×2 (09:45→17:46)
[2019-01-31 11:30] LABS: Glucose,Whole Blood 116 mg/dL (75-99)
[2019-01-31 12:18] VITALS: TEMP 98
--- NOTE | 2019-01-31 12:55 | ECHOF ---
Referral Reason:NEW ONSET A FIB MEASUREMENTS -------- HEIGHT: 160.0 cm WEIGHT: 78.9 kg BP: 116/75 RVIDd: 2.7 cm (< 3.3) IVSd: 1.3 cm (0.6 - 1.1) LVIDd: 3.6 cm (3.9 - 5.3) LVPWd: 1.4 cm (0.6 - 1.1) IVSs: 1.6 cm LVIDs: 2.7 cm LVPWs: 1.8 cm LA Diam: 3.7 cm (2.7 - 3.8) LAESV Index (A-L): 24.53 ml/m Ao Diam: 2.8 cm (2.0 - 3.7) AV Cusp: 1.9 cm (1.5 - 2.6) MV EXCURSION: 11.714 mm (> 18.000) MV EF SLOPE: 67 mm/s (70 - 150) EPSS: 0.6 cm RAP: 5.00 mmHg RVSP: 21.84 mmHg FINDINGS -------- Atrial fibrillation. This was a technically good study. The left ventricular size is normal. There is moderate concentric left ventricular hypertrophy. O verall left ventricular systolic function is mildly impaired with, an EF between 45 - 50 %. The right ventricle is normal in size. Normal LA size by volume 22+/-6 ml/m2. The right atrium is normal in size. There is mild aortic valve sclerosis. The mitral valve leaflets are mildly thickened. Mild tricuspid regurgitation present. Right ventricular systolic pressure is normal at < 35 mmHg. There is no pulmonic regurgitation present. The aortic root size is normal. Normal inferior vena cava with normal inspiratory collapse consistent with estimated right atrial pre ssure of 5 mmHg. There is no pericardial effusion. CONCLUSIONS -------- 1. Atrial fibrillation. 2. This was a technically good study. 3. The left ventricular size is normal. 4. There is moderate concentric left ventricular hypertrophy. 5. Overall left ventricular systolic function is mildly impaired with, an EF between 45 - 50 %. 6. The right ventricle is normal in size. 7. Normal LA size by volume 22+/-6 ml/m2. 8. The right atrium is normal in size. 9. There is mild aortic valve sclerosis. 10. The mitral valve leaflets are mildly thickened. 11. Mild tricuspid regurgitation present. 12. Right ventricular systolic pressure is normal at < 35 mmHg. 13. There is no pulmonic regurgitation present. 14. The aortic root size is normal. 15. Normal inferior vena cava with normal inspiratory collapse consistent with estimated right atrial pressure of 5 mmHg. 16. There is no pericardial effusion. MICROARRAY ANALYST: Nandini Mccallum RDCS
[2019-01-31] MEDS ORDERED: SODIUM CHLORIDE 0.9% 250 ML with PAMIDRONATE 60 MG IV ONE ×2 (13:00)
[2019-01-31 14:32] VITALS: BP 108/70; PULSE 90
[2019-01-31 16:39] LABS: Glucose,Whole Blood 307 mg/dL (75-99)
--- NOTE | 2019-01-31 22:10 | PN ---
PROGRESS NOTE Patient is seen for followup for acute kidney injury and hypercalcemia which is secondary to sarcoidosis. Serum creatinine is again a little bit higher at 1.73. IV fluids were decreased. Patient was started on prednisone yesterday for hypercalcemia from sarcoidosis. Her calcium level has not decreased yet. It is up to 13 today. On examination, blood pressure this afternoon was 147/74, heart rate of 80 per minute. Patient is afebrile. EXAMINATION OF THE HEART: S1 and S2. EXAMINATION OF LUNGS: Bilateral breath sounds are heard. ABDOMEN: Soft, non-tender. Examination of lower extremities shows trace edema bilaterally. GROUP HOME MANAGER exam is grossly intact. Labs show sodium 137, potassium 4.7, BUN 31, serum creatinine 1.73. Calcium is 13.0, hemoglobin 12.0 g/dL. ASSESSMENT: 1. Acute kidney injury secondary to hypercalcemia. Renal function had improved when patient was maintained on aggressive IV hydration. Her serum creatinine is slowly increasing. Patient will be discharged and we will follow up as outpatient. Patient has received a dose of pamidronate prior to discharge. 2. Hypercalcemia secondary to sarcoidosis. Patient states she was diagnosed with sarcoidosis with a skin biopsy from the back. She will follow up with Rheumatology. 3. Chronic kidney disease, stage III, with baseline creatinine about 1.2 to 1.6 October of 2018 secondary to nephrosclerosis. PLAN: Okay to discharge patient. Continue with prednisone 20 mg for a week and then decrease to 10 mg. Pamidronate x1 prior to discharge. Follow up as outpatient with Nephrology and Rheumatology. Consider Plaquenil down the road for sarcoidosis. MMODL / IJN: [id number] /
--- NOTE | 2019-02-01 16:05 | P.DS ---
Providers Date of admission: 01/25/19 15:44 Expected date of discharge: 01/31/19 Attending physician: Augusta Thurman Consults: 01/25/19 15:45 Consult Physician Routine Consulting Provider: Alvino Graham Consult Reason/Comments: Hypercalcemia Do you want consulting provider notified?: Yes 01/28/19 11:10 Consult Physician Routine Consulting Provider: Jessa Mijares Consult Reason/Comments: afib Do you want consulting provider notified?: Yes Primary care physician: Jaswinder Viramontes [facility] Course: this is a pleasant 73-year-old female patient of Dr. Grijalva. She has underlying history off CAD with prior cardiac stents, diabetes mellitus type 2, hypothyroidism, psoriasis, CK D stage III, fibromyalgia, admitted to the hospital secondary to acute dehydration presenting with diminished appetite, generalized muscle aches, vomiting, intermittent along with 2 episodes of diarrhea prior to admission.she denies any melena hematochezia, hemoptysis, patient denies any recent NSAID use, no new medication changes from her PCP.patient denies any chest pain no palpitations headache no lightheadedness syncope or falls. In emergency room, she presented with creatinine of 1.77, previous baseline of 1.4, calcium was elevated at 13.5, liver function tests normal,urinalyses is unremarkable except for hyaline cast, WBC 4, IBC 2, specific gravity of 1.010 trace proteinuriaEKG shows atrial fibrillation with rapid ventricular rate heart rate of 107patient was admitted secondary to the hyperkalemia, in no acute kidney injury, no CPKwas done on admission, troponin is normal at 0.012, glucose of 102. CAT scan of the brain chest x-rays were reviewed , brain CT shows mild chronic-appearing white matter ischemic changecervical spine shows no acute rashes abnormality, including the stasis, there is a c3 C4 moderate left foraminal stenosis, chest x-ray no acute pulmonary process no osseus abnormality Patient was admitted with renal consultation, 01/27: Patient is currently hydrated however she still has minimal appetite, still requiring 8 units of Levemir, instead of usual 70 units at home, patient has no muscle aches on nausea and abdominal pain, still weak, laboratories shows improvement of hypercalcemia with the current level of 12.8 PTH is normal, pending vitamin D levels and serum protein electrophoresis 01/28: Patient states that she ate 100% of her breakfast and lunch today. Patient is noted to be in atrial fibrillation on EKG and cardiology consult added. She complains of her bilateral legs aching. Lab work this morning reveals BUN of 20 and creatinine 1.44, calcium 12.8 and magnesium 1.4. Patient has been seen by nephrology for acute kidney injury with hypercalcemia and volume depletion. Urine and serum immunofixation are pending as well as [place] level. Patient to avoid any calcium supplements. Patient is continued on IV fluids 100 mL per hour. 01/29: Patient was seen by cardiology yesterday for new onset atrial fibrillation and patient has been started on eliquis 5 mg twice daily and Lopressor has been increased to 50 mg 3 times daily. Echocardiogram has been obtained but report is pending. Repeat lab work reveals sodium 135, potassium 5.2, chloride 107, CO2 23, BUN 21 creatinine 1.37. Blood sugars been running between 127 and 202. Calcium remains high at 12.9. No monoclonal paraprotein recognized. Angiotensin-converting enzyme was high at 53 and cut off is 52. Vitamin D 25.2. Parathyroid hormone intact is 20.2. TSH 1.840. 01/30: Patient has been afebrile, heart rate 95, blood pressure 119/63, pulse ox 99% on room air. CT of the chest reveals mild chronic parenchymal changes, no acute pulmonary process. Suboptimal evaluation for lymph nodes due to technique. Repeat lab work reveals sodium 133, potassium 4.9, chloride 105, CO2 23, BUN 25 and creatinine 1.61. ProBNP 8040. Patient is history that she had a skin biopsy done many years ago in [place] and was diagnosed with sarcoidosis. Dr. Anderson is following. She has added and prednisone 20 mg daily. Patient's blood sugars are rising for which Levemir will be increased to 30 units at bedtime. Echocardiogram report is currently pending. PT is recommending home with homecare or subacute rehab. Patient apparently lives with a woman that helps her out and her son is quite active in her care. 01/31: Patient has been afebrile, heart rate 80, blood pressure 121/81, pulse ox 98% on room air. Repeat lab work reveals WBC 9.1, hemoglobin 12.0, platelets 164. Sodium 137, potassium 4.7, chloride 108, BUN 31 and creatinine 1.73, calcium 13. Sugars have been running 82 this morning but [address] Anderson has cleared the patient for discharge with recommendations to continue on prednisone and repeat labs as an outpatient and follow-up in the office. She recommends considering switching to Plaquenil down the road once hypercalcemia is improved. Patient to follow-up with Dr. Strong. She will be given 1 dose of Pamidronate IV. Patient will be discharged home today in stable condition. Discharge diagnoses: 1. Acute kidney injury and hypercalcemia secondary to dehydration, chronic kidney disease stage III. 2. Diabetes mellitus type 2, uncontrolled with hyperglycemia secondary to steroids 3. Hypertension 4. Cervical disc dse with spinal stenosis mod [id number] 5. Current tobacco use on nicotine patches 6. Hypothyroidism. 7. Paroxysmal Atrial fibrillation, controlled rate, new onset. 8. Hypercalcemia secondary to sarcoidosis. [facility] and plan of care have been directed as dictated by the signing physician. Namrata Comer nurse practitioner acting as scribe for signing physician. Patient Condition at Discharge: Good Plan - Discharge Summary Discharge Rx Participant: Yes New Discharge Prescriptions: New Aspirin 81 mg PO DAILY chew Apixaban [Eliquis] 5 mg PO BID #60 tab Nicotine 21Mg/24Hr Patch [Habitrol] 1 patch TRANSDERM DAILY #30 patch Metoprolol Tartrate [Lopressor] 50 mg PO TID #90 tab Insulin Detemir (Levemir) [Levemir] 45 unit SQ HS syr predniSONE 20 mg PO DAILY #50 tab Continue Nitroglycerin Sl Tabs [Nitrostat] 0.4 mg SUBLINGUAL Q5M PRN PRN Reason: Chest Pain INSULIN LISPRO (humaLOG) [humaLOG] See Protocol SQ PC-TID PRN PRN Reason: Blood Sugar - High Gabapentin [Neurontin] 300 mg PO BID Folic Acid 1 mg PO DAILY Fish Oil/Dha/Epa [Fish Oil 1,200 mg Fish Oil] 1,000 mg PO DAILY Levothyroxine Sodium [Synthroid] 75 mcg PO QAM DULoxetine HCL [Cymbalta] 60 mg PO HS Ascorbic Acid [Vitamin C] 500 mg PO DAILY Atorvastatin [Lipitor] 80 mg PO HS #30 tab inFLIXimab [Remicade] 400 mg IM DIRECTED Cyanocobalamin (Vitamin B-12) [B-12] 1,000 mcg PO DAILY Magnesium Oxide [Mag-Ox] 400 mg PO DAILY Pioglitazone [Actos] 15 mg PO DAILY Alendronate Sodium 70 mg PO Q7D Milk Thistle 150 mg PO DAILY Turmeric Root Extract [Turmeric] 500 mg PO DAILY Changed INSULIN LISPRO (humaLOG) [humaLOG] 3 - 7 unit SQ PC-TID #0 Discontinued Insulin Detemir [Levemir Flexpen] 60 units SQ QAM Clopidogrel [Plavix] 75 mg PO DAILY Metoprolol Tartrate [Lopressor] 25 mg PO BID #60 tab Cholecalciferol [Vitamin D3] 2,000 unit PO DAILY Aspirin 81 mg PO DAILY Discharge Medication List DULoxetine HCL [Cymbalta] 60 mg PO HS 02/24/14 [History] Fish Oil/Dha/Epa [Fish Oil 1,200 mg Fish Oil] 1,000 mg PO DAILY 02/24/14 [History] Folic Acid 1 mg PO DAILY 02/24/14 [History] Gabapentin [Neurontin] 300 mg PO BID 02/24/14 [History] INSULIN LISPRO (humaLOG) [humaLOG] See Protocol SQ PC-TID PRN 02/24/14 [History] Levothyroxine Sodium [Synthroid] 75 mcg PO QAM 02/24/14 [History] Nitroglycerin Sl Tabs [Nitrostat] 0.4 mg SUBLINGUAL Q5M PRN 02/24/14 [History] Ascorbic Acid [Vitamin C] 500 mg PO DAILY 08/16/14 [History] Atorvastatin [Lipitor] 80 mg PO HS #30 tab 08/18/14 [Rx] Cyanocobalamin (Vitamin B-12) [B-12] 1,000 mcg PO DAILY 11/11/14 [History] Magnesium Oxide [Mag-Ox] 400 mg PO DAILY 11/11/14 [History] inFLIXimab [Remicade] 400 mg IM DIRECTED 11/11/14 [History] Pioglitazone [Actos] 15 mg PO DAILY 01/25/19 [History] Alendronate Sodium 70 mg PO Q7D 01/29/19 [History] Milk Thistle 150 mg PO DAILY 01/29/19 [History] Turmeric Root Extract [Turmeric] 500 mg PO DAILY 01/29/19 [History] Apixaban [Eliquis] 5 mg PO BID #60 tab 04/11/19 [Rx] Aspirin 81 mg PO DAILY chew 01/31/19 [Rx] INSULIN LISPRO (humaLOG) [humaLOG] 3 - 7 unit SQ PC-TID #0 01/31/19 [Rx] Insulin Detemir (Levemir) [Levemir] 45 unit SQ HS syr 01/31/19 [Rx] Metoprolol Tartrate [Lopressor] 50 mg PO TID #90 tab 01/31/19 [Rx] Nicotine 21Mg/24Hr Patch [Habitrol] 1 patch TRANSDERM DAILY #30 patch 01/31/19 [Rx] predniSONE 20 mg PO DAILY #50 tab 01/31/19 [Rx] Follow up Appointment(s)/Referral(s): Taty Anderson MD [STAFF PHYSICIAN] - 02/18/19 10:15 am Josue Mello MD [STAFF PHYSICIAN] - 02/11/19 2:45 pm [facility], [NON-STAFF] - Jaswinder Prado MD [Primary Care Provider] - 02/05/19 8:30 am Edwina Strong MD [STAFF PHYSICIAN] - 02/07/19 11:45 am () Ambulatory/Diagnostic Orders: Basic Metabolic Panel [LAB.AMB] Location: None Selected Patient Instructions/Handouts: Metoprolol (By mouth), Prednisone (By mouth), Nicotine (Absorbed through the skin), Apixaban (By mouth), A-fib (Atrial Fibrillation) (DC), How to Stop Smoking (DC), Dehydration (DC), Fall Prevention (DC) Activity/Diet/Wound Care/Special Instructions: [place] given 01/31/2019. Discharge Disposition: HOME WITH HOME HEALTH SERVICES
== END 2019-01-31 19:10 | disposition home health service (06) | DRG 640 ==
LOC: EC 11:20 → 3NMEDONC 15:44
PROVIDERS: ADMIT Internal Medicine; ATTEND Internal Medicine
DX: E83.52 Hypercalcemia (principal); N17.0 Acute kidney failure with tubular necrosis; E87.1 Hypo-osmolality and hyponatremia; D86.9 Sarcoidosis, unspecified; E03.9 Hypothyroidism, unspecified; E11.22 Type 2 diabetes mellitus with diabetic chronic kidney disease; E11.51 Type 2 diabetes mellitus with diabetic peripheral angiopathy without gangrene; E11.65 Type 2 diabetes mellitus with hyperglycemia; Z79.4 Long term (current) use of insulin; E78.5 Hyperlipidemia, unspecified; E83.42 Hypomagnesemia; E86.0 Dehydration; E87.70 Fluid overload, unspecified; F17.210 Nicotine dependence, cigarettes, uncomplicated; F32.9 Major depressive disorder, single episode, unspecified; I12.9 Hypertensive chronic kidney disease with stage 1 through stage 4 chronic kidney disease, or unspecified chronic kidney disease; I25.10 Atherosclerotic heart disease of native coronary artery without angina pectoris; I25.2 Old myocardial infarction; I08.3 Combined rheumatic disorders of mitral, aortic and tricuspid valves; I48.0 Paroxysmal atrial fibrillation; L40.50 Arthropathic psoriasis, unspecified; M48.02 Spinal stenosis, cervical region; M79.7 Fibromyalgia; N18.3 Chronic kidney disease, stage 3 (moderate); R29.6 Repeated falls; Z91.81 History of falling; Z79.02 Long term (current) use of antithrombotics/antiplatelets; Z79.82 Long term (current) use of aspirin; Z79.890 Hormone replacement therapy; Z79.899 Other long term (current) drug therapy; Z80.41 Family history of malignant neoplasm of ovary; Z82.49 Family history of ischemic heart disease and other diseases of the circulatory system; Z87.442 Personal history of urinary calculi; Z95.5 Presence of coronary angioplasty implant and graft; Z95.828 Presence of other vascular implants and grafts; Z88.0 Allergy status to penicillin; Z86.718 Personal history of other venous thrombosis and embolism; R19.7 Diarrhea, unspecified; E87.5 Hyperkalemia; Z80.42 Family history of malignant neoplasm of prostate; Z80.8 Family history of malignant neoplasm of other organs or systems; H91.90 Unspecified hearing loss, unspecified ear; H93.19 Tinnitus, unspecified ear; R63.0 Anorexia; Z68.31 Body mass index [BMI] 31.0-31.9, adult
CPT/HCPCS: 36415; 70450; 71046; 71250; 72125; 72170; 80048; 80053; 81001; 82164; 82306; 82652; 83605; 83735; 83880; 83970; 84100; 84165; 84443; 84484; 85025; 85610; 85730; 86334; 86335; 87086; 93005; 93306; 96360; 96361; 99285